=== PATIENT | male | born 1950 | race Caucasian/White ===

== ENCOUNTER 2016-11-25 11:58 | Inpatient (IN) | payer OTHER ==
--- NOTE | 2016-11-25 12:12 | CPEKG ---
Heart Rate: 73 RR Interval: 822 P-R Interval: 132 QRSD Interval: 82 QT Interval: 428 QTC Interval: 472 P Vanderbilt: -63 QRS Vanderbilt: 66 T Wave Vanderbilt: 16 EKG Severity - ABNORMAL ECG - EKG Impression: SINUS OR ECTOPIC ATRIAL RHYTHM EKG Impression: MULTIPLE ATRIAL PREMATURE COMPLEXES Electronically Signed By: Lupis Al 25-Nov-2016 15:07:18
[2016-11-25] MEDS ORDERED: NS 500 ML IV ONE (12:21)
[2016-11-25 12:22] LABS: % IMMATURE GRANULYOCYTES 0.7 % (0.0-1.1); ABSOLUTE IMMATURE GRANULOCYTES 0.07 10^3/uL (0.00-0.10); ADD DIFF? NO; ADD MORPH? YES; ADD SCAN? NO; ATYPICAL LYMPHOCYTE FLAG 10 (0-99); FRAGMENT RBC FLAG 0 (0-99); HEMATOCRIT 18.8 % (40.0-51.0); LEFT SHIFT FLG 10 (0-99); LIPEMIA HEMOLYSIS FLAG 80 (0-99); MEAN CELL HEMOGLOBIN 29.2 pg (27.9-34.1); MEAN CELL VOLUME 88.7 fL (81.5-99.8); PLATELET CLUMPS FLAG 0 (0-99); PLATELET COUNT 378 10^3/uL (150-400); RED BLOOD CELL COUNT 2.12 10^6/uL (4.40-6.38); RED CELL DISTRIBUTION WIDTH 14.1 % (11.5-15.2)
[2016-11-25 12:25] LABS: HEMOGLOBIN 6.2 g/dL (13.7-17.5)
[2016-11-25 12:35] LABS: ALANINE AMINOTRANSFERASE 25 IU/L (21-72); ALBUMIN 2.3 g/dL (3.5-5.0); ALKALINE PHOSPHATASE 60 IU/L (38-126); ANION GAP 10 mEq/L (8-16); ASPARTATE AMINOTRANSFERASE 22 IU/L (17-59); BILIRUBIN,TOTAL 0.6 mg/dL (0.1-1.4); CALCIUM 8.1 mg/dL (8.5-10.4); CARBON DIOXIDE 20 mEq/l (22-31); CHLORIDE 100 mEq/L (97-110); CREATININE 0.8 mg/dL (0.7-1.3); GLOMERULAR FILTRATION RATE > 60; GLUCOSE 197 mg/dL (70-100); POTASSIUM 4.1 mEq/L (3.5-5.2); SODIUM 130 mEq/L (134-144); TOTAL PROTEIN 4.8 g/dL (6.3-8.2)
[2016-11-25] MEDS ORDERED: LIDOCAINE 2% JELLY 20 ML (UROJECT) ONE (12:46)
--- NOTE | 2016-11-25 12:49 | EDPHY ---
H & P Time Seen by Provider: 11/25/16 12:09 HPI/ROS: CHIEF COMPLAINT: Vomiting blood, syncope HISTORY OF PRESENT ILLNESS: 66-year-old male with newly diagnosed pancreatic cancer presents with vomiting blood and syncope. Onset of hematemesis this morning, 1 episode. 3 episodes of bloody stools this morning as well. Associated with 2 episodes of syncope. Ongoing epigastric pain, radiating to his back, but no new abdominal pain today. He takes ibuprofen 400 mg twice daily for ongoing pain. No prior history of peptic ulcer disease. He was diagnosed with pancreatic cancer in October of this year. He apparently has a 4 cm pancreatic mass, without metastasis. He is being seen at [facility] for the malignancy. REVIEW OF SYSTEMS: Constitutional: No fever, no chills Eyes: No visual changes ENT: No sore throat Respiratory: No cough, no shortness of breath Cardiac: No chest pain Genitourinary: No hematuria, no dysuria Musculoskeletal: No leg pain or swelling Skin: No rash Neurological: No headache Psychiatric: No depression Past Medical/Surgical History: Pancreatic cancer Social History: PCP: Dr. Miller No recent alcohol Smoking Status: Never smoked Physical Exam: General Appearance: Alert, pleasant, pale Eyes: Pupils equal and round, conjunctival pallor ENT, Mouth: Mucous membranes moist Neck: Normal inspection Respiratory: Lungs are clear to auscultation Cardiovascular: Regular rate and rhythm Gastrointestinal: Abdomen is soft, mild epigastric tenderness Rectal: Dark red blood present Neurological: A&O, nonfocal exam Skin: Warm and dry, pale Extremities: 1+ pedal edema bilaterally Psychiatric: Mood and affect normal Constitutional: Initial Vital Signs Heart Rate 70 11/25/16 12:09 Respiratory Rate 16 11/25/16 12:09 Blood Pressure 92/48 L 11/25/16 12:09 O2 Delivery Mode Room Air Allergies/Adverse Reactions: No Known Allergies Allergy (Unverified 11/25/16 12:37) Home Medications: Medication Instructions Recorded Cholecalciferol Vit D3 [Vitamin D3 1,000 units PO DAILY 11/25/16 (*)] Dorzolamide 2% [Trusopt 2% (*)] 1 drop EACHEYE BID 11/25/16 Furosemide [Lasix] 40 mg PO BID 11/25/16 Ibuprofen [Motrin (*)] 200 mg PO DAILY PRN 07/03/17 Spironolactone [Aldactone 25 MG 25 mg PO DAILY 11/25/16 (*)] oxyCODONE/APAP 5/325 [Percocet 1 - 2 tab PO HS PRN 11/25/16 5/325 (*)] Medical Decision Making - Diagnostics EKG Interpretation: EKG interpreted by me reveals a narrow complex atrial rhythm, possibly ectopic in origin, rate, 73, no ST or T segment changes. ED Course/Re-evaluation: Clinical presentation consistent with serious upper GI bleed. Stat CBC reveals hematocrit 18. Packed red blood cells 2 units IV ordered. IV normal saline 500 mL was given. Blood pressure is 102/52 after IV fluids. Protonix 40 mg IV given. The hospitalist service was consulted for admission. Dr. Ady Esposito was consulted and will see the patient in the hospital. 13:[address] Ady Esposito. Patient will be started on Protonix drip. 1 unit packed red blood cells were given prior to the patient's transfer to the ICU. No further episodes of hematemesis or hematochezia. Differential Diagnosis: Differential diagnosis includes does not limited to hemorrhagic shock, esophageal varices, gastritis, peptic ulcer disease, coagulopathy. Critical Care Time: This patient utilized 35 minutes of critical care time by me exclusive of unbundled procedures. - Data Points Laboratory Results: Laboratory Results 11/25/16 12:09 11/25/16 12:09 11/25/16 11/25/16 11/25/16 12:25 12:14 12:09 WBC RBC Hgb POC Hgb 5.1 gm/dL L* gm/dL (13.7-17.5) Hct POC Hct 15 % L* % (40-51) MCV MCH MCHC RDW Plt Count MPV Neut % (Auto) Lymph % (Auto) Casey % (Auto) Eos % (Auto) Baso % (Auto) Nucleat RBC Rel Count Absolute Neuts (auto) Absolute Lymphs (auto) Absolute Monos (auto) Absolute Eos (auto) Absolute Basos (auto) Absolute Nucleated RBC Immature Gran % Immature Gran # Platelet Estimate Hypochromasia Oval Macrocytes Smear Review By PT 16.6 SEC H SEC (12.0-15.0) INR 1.34 H (0.83-1.16) APTT 37.1 SEC SEC (23.0-38.0) POC Sodium 138 mEq/L mEq/L (134-144) Sodium POC Potassium 3.2 mEq/L L mEq/L (3.3-5.0) Potassium POC Chloride 102 mEq/L mEq/L (97-110) Chloride Carbon Dioxide Anion Gap POC BUN 29 mg/dL H mg/dL (7-23) BUN Creatinine POC Creatinine 0.6 mg/dL L mg/dL (0.7-1.3) Estimated GFR Glucose POC Glucose 151 mg/dL H mg/dL (70-100) Calcium Total Bilirubin AST ALT Alkaline Phosphatase Total Protein Albumin Patient ABO/Rh O POSITIVE Antibody Screen NEGATIVE Crossmatch IS Only See Detail 11/25/16 11/25/16 12:09 12:09 WBC 10.39 10^3/uL H 10^3/uL (3.80-9.50) RBC 2.12 10^6/uL L 10^6/uL (4.40-6.38) Hgb 6.2 g/dL L g/dL (13.7-17.5) POC Hgb Hct 18.8 % L % (40.0-51.0) POC Hct MCV 88.7 fL fL (81.5-99.8) MCH 29.2 pg pg (27.9-34.1) MCHC 33.0 g/dL g/dL (32.4-36.7) RDW 14.1 % % (11.5-15.2) Plt Count 378 10^3/uL 10^3/uL (150-400) MPV 9.0 fL fL (8.7-11.7) Neut % (Auto) 90.4 % H % (39.3-74.2) Lymph % (Auto) 4.8 % L % (15.0-45.0) Casey % (Auto) 3.9 % L % (4.5-13.0) Eos % (Auto) 0.1 % L % (0.6-7.6) Baso % (Auto) 0.1 % L % (0.3-1.7) Nucleat RBC Rel Count 0.0 % % (0.0-0.2) Absolute Neuts (auto) 9.39 10^3/uL H 10^3/uL (1.70-6.50) Absolute Lymphs (auto) 0.50 10^3/uL L 10^3/uL (1.00-3.00) Absolute Monos (auto) 0.41 10^3/uL 10^3/uL (0.30-0.80) Absolute Eos (auto) 0.01 10^3/uL L 10^3/uL (0.03-0.40) Absolute Basos (auto) 0.01 10^3/uL L 10^3/uL (0.02-0.10) Absolute Nucleated RBC 0.00 10^3/uL 10^3/uL (0-0.01) Immature Gran % 0.7 % % (0.0-1.1) Immature Gran # 0.07 10^3/uL 10^3/uL (0.00-0.10) Platelet Estimate ADEQUATE (ADEQ) Hypochromasia 1+ H Oval Macrocytes 1+ H Smear Review By Melissa MONCADA MD PT INR APTT POC Sodium Sodium 130 mEq/L L mEq/L (134-144) POC Potassium Potassium 4.1 mEq/L mEq/L (3.5-5.2) POC Chloride Chloride 100 mEq/L mEq/L (97-110) Carbon Dioxide 20 mEq/l L mEq/l (22-31) Anion Gap 10 mEq/L mEq/L (8-16) POC BUN BUN 37 mg/dL H mg/dL (7-23) Creatinine 0.8 mg/dL mg/dL (0.7-1.3) POC Creatinine Estimated GFR > 60 Glucose 197 mg/dL H mg/dL (70-100) POC Glucose Calcium 8.1 mg/dL L mg/dL (8.5-10.4) Total Bilirubin 0.6 mg/dL mg/dL (0.1-1.4) AST 22 IU/L IU/L (17-59) ALT 25 IU/L IU/L (21-72) Alkaline Phosphatase 60 IU/L IU/L (38-126) Total Protein 4.8 g/dL L g/dL (6.3-8.2) Albumin 2.3 g/dL L g/dL (3.5-5.0) Patient ABO/Rh Antibody Screen Crossmatch IS Only Medications Given: Discontinued Medications Sodium Chloride (Ns) 500 mls @ 1,000 mls/hr IV ONCE ONE PRN Reason: Protocol Stop: 11/25/16 12:50 Last Admin: 11/25/16 12:30 Dose: 500 mls Pantoprazole Sodium 40 mg/ (Sodium Chloride) 100 mls @ 200 mls/hr IV EDNOW ONE Stop: 11/25/16 13:21 Last Admin: 11/25/16 13:56 Dose: 100 mls Sodium Chloride (Ns) 1,000 mls @ 150 mls/hr IV CONT JOO Stop: 05/24/17 14:44 Last Admin: 11/25/16 16:12 Dose: 1,000 mls Octreotide Acetate 500 mcg/ (Dextrose) 51 mls @ 5 mls/hr IV CONT JOO Stop: 05/24/17 15:29 Last Admin: 11/25/16 16:09 Dose: 51 mls Phytonadione 10 mg/ Sodium (Chloride) 51 mls @ 102 mls/hr IV ONCE ONE Stop: 11/25/16 16:44 Last Admin: 11/25/16 16:40 Dose: 51 mls Point of Care Test Results: 11/25/16 12:25 POC Sodium 138 POC Potassium 3.2 L POC Chloride 102 POC BUN 29 H POC Creatinine 0.6 L POC Glucose 151 H Departure - Departure Disposition: [facility] Inpatient Acute Clinical Impression: Upper GI bleed Condition: Serious Report Scribed for: Lupis Al Report Scribed by: Renetta Martínez Date of Report: 11/25/16 Time of Report: 13:06 Physician Review and Approval Statement: 11/25/16 13:06 Portions of this note were transcribed by a biomedical engineering supervisor. I personally performed a history, physical exam, medical decision making, and confirmed accuracy of information the transcribed note.
[2016-11-25] MEDS ORDERED: PANTOPRAZOLE SODIUM 40 MG in NS 100 ML IV ONE (12:52)
[2016-11-25 12:57] LABS: HYPOCHROMIA 1+; MACROCYTES 1+; PLATELET ESTIMATE ADEQUATE (ADEQ)
[2016-11-25] MEDS ORDERED: PANTOPRAZOLE SODIUM 80 MG in NS 100 ML IV ONE (13:03)
[2016-11-25 13:11] LABS: INR 1.34 (0.83-1.16); PROTIME(PATIENT) 16.6 SEC (12.0-15.0)
[2016-11-25 13:12] LABS: APTT 37.1 SEC (23.0-38.0)
[2016-11-25] MEDS ORDERED: LORazepam 2 MG/ML INJ IVP PRN (14:42)
[2016-11-25] MEDS ORDERED: NS 1,000 ML IV SCH (14:45)
[2016-11-25] MEDS ORDERED: PROTOCOL K PHOSPHATE 1 DOSE IV PRN (14:47)
[2016-11-25] MEDS ORDERED: PROTOCOL POTASSIUM 1 DOSE MISC PRN ×2 (14:47)
[2016-11-25] MEDS ORDERED: PROTOCOL CALCIUM 1 DOSE IV PRN (14:47)
[2016-11-25] MEDS ORDERED: PROTOCOL MAGNESIUM 1 DOSE IV PRN (14:47)
[2016-11-25] MEDS ORDERED: MIDAZOLAM 2 MG/2 ML VIAL ONE (14:53)
[2016-11-25] MEDS ORDERED: EPINEPHrine 1 MG/10 ML SYR IVP ONE (14:53)
[2016-11-25] MEDS ORDERED: fentaNYL 100 MCG/2 ML INJ ONE (14:53)
--- NOTE | 2016-11-25 14:57 | PDGENHP ---
History and Physical - Chief Complaint syncope/vomiting blood - History of Present Illness 66 yo M with newly diagnosed pancreatic cancer presenting with hematemesis, BRBPR and melena starting this morning. He notes that yesterday he felt well but this morning he vomited blood and then fainted. He proceeded to have several bowel movements which were both dark and bloody and had a second syncopal event. He notes that he has been dealing with midepigastric and back pain for a while due to his pancreatic cancer which was diagnosed in October. He takes percocet and about 4 advil per day to deal with his pain. The pain was not worse than usual recently. He currently feels well after receiving a unit of blood. Never had similar issues in the past. History Information - Allergies/Home Medication List Allergies/Adverse Reactions: No Known Allergies Allergy (Unverified 11/25/16 12:37) Home Medications: Cholecalciferol Vit D3 [Vitamin D3 (*)] 1,000 units PO DAILY 11/25/16 [Last Taken Unknown] Dorzolamide 2% [Trusopt 2% (*)] 1 drop EACHEYE BID 11/25/16 [Last Taken 21:00] Furosemide [Lasix] 40 mg PO BID 11/25/16 [Last Taken 11/24/16 21:00] Ibuprofen [Motrin (*)] 200 mg PO DAILY PRN 11/25/16 [Last Taken Unknown] Spironolactone [Aldactone 25 MG (*)] 25 mg PO DAILY 11/25/16 [Last Taken ] oxyCODONE/APAP 5/325 [Percocet 5/325 (*)] 1 - 2 tab PO HS PRN 11/25/16 [Last Taken 11/24/16] I have personally reviewed and updated: family history, medical history, social history, surgical history - Past Medical History cancer (pancreatic cancer dx in October--unresectable, large pancreatic head mass. Has not started chemo) - Surgical History Reports: no pertinent surgical hx - Family History Positive for: non-pertinent - Social History Smoking Status: Never smoked Alcohol Use: None Drug Use: None Additional social history: lives alone, still working Review of Systems ROS: 10pt was reviewed & negative except for what was stated in HPI & below Physical Exam Temp Pulse Resp BP Pulse Ox 36.4 C 66 18 104/63 100 07/03/17 14:15 11/25/16 14:15 11/25/16 14:15 11/25/16 14:15 11/25/16 14:15 Constitutional: appears nourished, not in pain, chronically ill appearing Eyes: PERRL, scleral injection Ears, Nose, Mouth, Throat: moist mucous membranes, hearing normal Cardiovascular: regular rate and rhythym, no murmur, rub, or gallop, No edema Respiratory: no respiratory distress, no rales or rhonchi Gastrointestinal: soft, non-tender abdomen, no palpable masses, No normoactive bowel sounds, No guarding, No rebound, No distension Genitourinary: no bladder tenderness Skin: warm, No normal color (pale) Musculoskeletal: No asymmetric calves Neurologic: AAOx3 Psychiatric: interacting appropriately, not anxious, not encephalopathic Lab Data & Imaging Review 11/25/16 12:09 11/25/16 12:09 WBC 10.39 10^3/uL (3.80-9.50) H 11/25/16 12:09 RBC 2.12 10^6/uL (4.40-6.38) L 11/25/16 12:09 Hgb 6.2 g/dL (13.7-17.5) L 11/25/16 12:09 POC Hgb 5.1 gm/dL (13.7-17.5) L* 11/25/16 12:25 Hct 18.8 % (40.0-51.0) L 11/25/16 12:09 POC Hct 15 % (40-51) L* 11/25/16 12:25 MCV 88.7 fL (81.5-99.8) 11/25/16 12:09 MCH 29.2 pg (27.9-34.1) 11/25/16 12:09 MCHC 33.0 g/dL (32.4-36.7) 11/25/16 12:09 RDW 14.1 % (11.5-15.2) 11/25/16 12:09 Plt Count 378 10^3/uL (150-400) 11/25/16 12:09 MPV 9.0 fL (8.7-11.7) 11/25/16 12:09 Neut % (Auto) 90.4 % (39.3-74.2) H 11/25/16 12:09 Lymph % (Auto) 4.8 % (15.0-45.0) L 11/25/16 12:09 Haywood % (Auto) 3.9 % (4.5-13.0) L 11/25/16 12:09 Eos % (Auto) 0.1 % (0.6-7.6) L 11/25/16 12:09 Baso % (Auto) 0.1 % (0.3-1.7) L 11/25/16 12:09 Nucleat RBC Rel Count 0.0 % (0.0-0.2) 11/25/16 12:09 Absolute Neuts (auto) 9.39 10^3/uL (1.70-6.50) H 11/25/16 12:09 Absolute Lymphs (auto) 0.50 10^3/uL (1.00-3.00) L 11/25/16 12:09 Absolute Monos (auto) 0.41 10^3/uL (0.30-0.80) 11/25/16 12:09 Absolute Eos (auto) 0.01 10^3/uL (0.03-0.40) L 11/25/16 12:09 Absolute Basos (auto) 0.01 10^3/uL (0.02-0.10) L 11/25/16 12:09 Absolute Nucleated RBC 0.00 10^3/uL (0-0.01) 11/25/16 12:09 Immature Gran % 0.7 % (0.0-1.1) 11/25/16 12:09 Immature Gran # 0.07 10^3/uL (0.00-0.10) 11/25/16 12:09 Platelet Estimate ADEQUATE (ADEQ) 11/25/16 12:09 Hypochromasia 1+ H 11/25/16 12:09 Oval Macrocytes 1+ H 11/25/16 12:09 PT 16.6 SEC (12.0-15.0) H 11/25/16 12:14 INR 1.34 (0.83-1.16) H 11/25/16 12:14 APTT 37.1 SEC (23.0-38.0) 11/25/16 12:14 POC Sodium 138 mEq/L (134-144) 11/25/16 12:25 Sodium 130 mEq/L (134-144) L 11/25/16 12:09 POC Potassium 3.2 mEq/L (3.3-5.0) L 11/25/16 12:25 Potassium 4.1 mEq/L (3.5-5.2) 11/25/16 12:09 POC Chloride 102 mEq/L (97-110) 11/25/16 12:25 Chloride 100 mEq/L (97-110) 11/25/16 12:09 Carbon Dioxide 20 mEq/l (22-31) L 11/25/16 12:09 Anion Gap 10 mEq/L (8-16) 11/25/16 12:09 POC BUN 29 mg/dL (7-23) H 11/25/16 12:25 BUN 37 mg/dL (7-23) H 11/25/16 12:09 Creatinine 0.8 mg/dL (0.7-1.3) 11/25/16 12:09 POC Creatinine 0.6 mg/dL (0.7-1.3) L 11/25/16 12:25 Estimated GFR > 60 11/25/16 12:09 Glucose 197 mg/dL (70-100) H 11/25/16 12:09 POC Glucose 151 mg/dL (70-100) H 11/25/16 12:25 Calcium 8.1 mg/dL (8.5-10.4) L 11/25/16 12:09 Total Bilirubin 0.6 mg/dL (0.1-1.4) 11/25/16 12:09 AST 22 IU/L (17-59) 11/25/16 12:09 ALT 25 IU/L (21-72) 11/25/16 12:09 Alkaline Phosphatase 60 IU/L (38-126) 11/25/16 12:09 Total Protein 4.8 g/dL (6.3-8.2) L 11/25/16 12:09 Albumin 2.3 g/dL (3.5-5.0) L 11/25/16 12:09 Patient ABO/Rh O POSITIVE 11/25/16 12:09 Antibody Screen NEGATIVE 11/25/16 12:09 Crossmatch IS Only See Detail 11/25/16 12:09 Visualized and Interpreted imaging results: Yes Interpretation: NG in stomach Assessment & Plan Assessment: Upper GI bleed (Acute) 66 yo M with recently diagnosed unresectable pancreatic cancer presenting with GI bleed, syncope and acute blood loss anemia # GI bleed: sounds like a brisk upper GI bleed with both hematemesis and both BRBPR and melena. Currently HD stable, will transfuse 2 units prbcs and trend h/ h. GI has been consulted and likely will proceed with EGD today. Continue protonix gtt. Is chronically on NSAIDS though no prior hx of PUD or GERD. 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 # acute blood loss anemia: in the setting of above, last CBC from [facility] on 11/14 was 38.6. Transfusion and serial h/h as above. # pancreatic cancer: he is followed at [facility] for this, diagnosed in October after several months of sxs that were initially attributed to possible CHF and w/u including r/l heart cath as well as myocardial bx. He is not a surgical candidate and has decided to wait on initiating chemotherapy. This was a locally advanced cancer, [id number]. # edema/ascites: currently appears euvolemic, due to underlying portal htn, holding diuretics for now given acute bleed # IP status, high risk requiring ICU level care Patient is new to my care. Old records reviewed including records from [facility] available in [place]. Care plan reviewed with ER doctor. > 60 minutes in critical care time spent reviewing labs and imaging and coordinating care.
[2016-11-25] MEDS ORDERED: PANTOPRAZOLE SODIUM 80 MG in NS 100 ML IV SCH (15:00)
[2016-11-25] MEDS ORDERED: OCTREOTIDE ACETATE 500 MCG in D5W 50 ML IV SCH (15:30)
[2016-11-25] MEDS ORDERED: NS 500 ML IV PRN (16:12)
[2016-11-25] MEDS ORDERED: PHYTONADIONE 10 MG in NS 50 ML IV ONE (16:15)
[2016-11-25] MEDS ORDERED: D5W 1/2 NS W/ 20 KCl/L 1,000 ML IV SCH (16:15)
--- NOTE | 2016-11-25 16:35 | GCON ---
[f rep st] CONSULTATION GASTROINTESTINAL INPATIENT CONSULTATION DATE OF CONSULTATION: 11/25/2016 I was kindly requested to see the patient by Dr. Belinda Mcnamara in consultation for a chief complaint of gastrointestinal bleeding. He is a 66- year-old, who presented to the hospital today with hematemesis, and passing black stool with some maroon element as well. He had syncope with the above. He has been having mid epigastric and back pain due to his pancreatic cancer, and has been using multiple Aleve tablets daily. He is cared for at the [facility] for his pancreatic cancer. According to his history and physical, he has had outside imaging that shows that it is encasing the portal vein. He has also had complications such as ascites and edema, and there is mention of portal hypertension on his imaging. PAST MEDICAL HISTORY: 1. As above. 2. Pancreatic cancer, involving the head. Large, and apparently unresectable. Diagnosed in October. He has not started chemotherapy. 3. Otherwise, noncontributory. ALLERGIES: No known drug allergies. MEDICATIONS: Outpatient medications include the above. Inpatient medications include octreotide drip, pantoprazole drip, potassium protocol and normal saline at 150 mL an hour, SOCIAL HISTORY: He lives alone here in [place]. He has a brother that he is close to in [place]. FAMILY HISTORY: Negative for similar bleeding. REVIEW OF SYSTEMS: Positive pertinent review of systems as per my HPI. Otherwise, a complete review of systems is negative. PHYSICAL EXAM: CONSTITUTIONAL: A pale appearing, pleasant gentleman. SKIN: Warm, pale. EYES: Pupils equal, round, reactive to light and accommodation. EARS, NOSE, MOUTH, AND THROAT: Oropharynx without masses, moist mucosa. CARDIOVASCULAR: Normal S2, normal PMI. RESPIRATORY: Lungs clear to auscultation and percussion anteriorly. GASTROINTESTINAL: Soft, nontender. NEUROLOGIC: Grossly nonfocal, cranial nerves grossly intact. PSYCHIATRIC: Orientation, insight appropriate. MUSCULOSKELETAL: Strength grossly normal throughout, with normal station. LABORATORIES: Include a hematocrit of 18.8%. Platelet count normal. Prothrombin time 16.6. INR 1.34. Potassium 3.2. Normal liver function tests. ASSESSMENT: Upper gastrointestinal bleed. Could be due to peptic ulcer from his nonsteroidal use. However, with the report of his portal vein being encased by pancreatic cancer, certainly he may have developed portal vein thrombosis and esophageal varices. There was also some mention in his chart of "portal hypertension", which could lead to varices as well. PLAN: 1. Urgent upper endoscopy. Certainly, with his very significant anemia, acute bleeding, recently diagnosed pancreatic cancer, etcetera, he is at increased risk for this procedure. However, suspected benefits outweigh the risks, and suspect he will do well. 2. Further management depending on the above. Thank you for allowing me to help in the management of this patient. Copy requested to: Reji Medina MD [facility] [place] /[id number]/MODL MTDD
--- NOTE | 2016-11-25 16:55 | GPN ---
[f rep st] PROCEDURE NOTE DATE OF PROCEDURE: 11/25/2016 PROCEDURE: Upper endoscopy with biopsy. PREPROCEDURE DIAGNOSIS: Hematemesis. POSTPROCEDURE DIAGNOSIS: Large mass in the duodenum (see below). PREMEDICATION: Fentanyl 150 mcg IV, Versed 6 mg IV. COMPLICATIONS: None. TOTAL TIME OF PROCEDURE: From beginning of sedation to procedures' end was 23 minutes. FINDINGS: After informed consent was obtained, the patient was placed in left lateral decubitus position. Video upper endoscope was placed under direct visualization and advanced. Esophagus was normal, without varices. The stomach had a large amount of clotted blood in the dependent portion making visualization of this area difficult. The cardia had no gastric varices. The visualized stomach was normal. Immediately as we entered the duodenal bulb, it was almost completely occupied by a very large circumferential mass. The distal part of the duodenal bulb had a very tight lumen from constriction from this circumferential mass. Unable to get the upper endoscope through (did not overly try, as did not want to disturb any clot, in terms of reactivating bleeding). Associated with this large mass and duodenal bulb was a large adherent clot. No obvious active bleeding could be seen presently. Biopsies were done of the mass. IMPRESSION: Very large mass occupying the duodenal bulb, circumferential, with recent bleeding and an adherent clot, as well as very narrowed lumen. Overall, I suspect this is his known pancreatic cancer infiltrating his duodenal bulb. I suspect the bleeding was arterial from this cancer. Presently, not bleeding. However, this mass will certainly rebleed at some point, quite briskly. PLAN: 1. Will continue n.p.o. except medications, sips of water. 2. Will stop his normal saline at 150 mL/hour with his history of ascites and edema. Rather, will do D5 1/2 NS with 20 mEq of KCl per liter bag at 40 mL/hour , with a normal saline 500 cc bolus IV p.r.n. for systolic blood pressure less than 90. 3. Vitamin K IV x1. 4. Serial hematocrits with transfusion of blood as needed. 5. Continue Protonix drip. 6. Discontinue octreotide drip. This is not related to portal hypertension. 7. Further management of this infiltrating cancer is very difficult. It has a very high risk that it will rebleed at some point soon, and will be a very brisk arterial bleed that could be life-threatening. At this point, considering his tumor burden, the best option might be hospice and comfort care. I do not think a modified Whipple to remove the duodenal bulb and this bleeding cancer would be possible, with his unresectability with his pancreatic cancer reportedly wrapping around his portal vein. If he were to rebleed, interventional radiology and embolization might be possible, but often these arterial cancer bleeds can be multifocal. I will discuss options, including hospice, with the patient when he is awake and coherent from his procedure. Further management depending on this conversation. Thank you for allowing me to help in the management of this patient. Copy requested to: Reddy Bonilla MD /[id number]/MODL MTDD
[2016-11-25 17:16] LABS: HEMATOCRIT 20.4 % (40.0-51.0)
[2016-11-25 17:19] LABS: HEMOGLOBIN 6.9 g/dL (13.7-17.5)
[2016-11-25 18:13] LABS: POTASSIUM 3.8 mEq/L (3.5-5.2)
[2016-11-25] MEDS: POTASSIUM Cl (KCl) 100 ML IV SCH ×2 (21:07→22:42)
[2016-11-25] MEDS: DORZOLAMIDE 2% OPTH DROPS EACHEYE SCH (21:48)
[2016-11-26] MEDS: PANTOPRAZOLE SODIUM 80 MG in NS 100 ML IV SCH ×2 (00:35→11:31)
[2016-11-26 01:13] LABS: HEMATOCRIT 29.1 % (40.0-51.0); HEMOGLOBIN 9.8 g/dL (13.7-17.5)
[2016-11-26 01:25] LABS: POTASSIUM 4.7 mEq/L (3.5-5.2)
[2016-11-26 05:55] LABS: IONIZED CALCIUM 0.91 MMOL/L (1.12-1.30)
[2016-11-26 05:59] LABS: % IMMATURE GRANULYOCYTES 0.7 % (0.0-1.1); ABSOLUTE IMMATURE GRANULOCYTES 0.06 10^3/uL (0.00-0.10); ADD DIFF? NO; ADD MORPH? NO; ADD SCAN? NO; ATYPICAL LYMPHOCYTE FLAG 20 (0-99); FRAGMENT RBC FLAG 0 (0-99); HEMATOCRIT 28.2 % (40.0-51.0); HEMOGLOBIN 9.4 g/dL (13.7-17.5); LEFT SHIFT FLG 0 (0-99); LIPEMIA HEMOLYSIS FLAG 80 (0-99); MEAN CELL HEMOGLOBIN 27.8 pg (27.9-34.1); MEAN CELL HEMOGLOBIN CONCENTR. 33.3 g/dL (32.4-36.7); MEAN CELL VOLUME 83.4 fL (81.5-99.8); MEAN PLATELET VOLUME 9.1 fL (8.7-11.7); PLATELET CLUMPS FLAG 10 (0-99); PLATELET COUNT 211 10^3/uL (150-400); RED BLOOD CELL COUNT 3.38 10^6/uL (4.40-6.38)
[2016-11-26 06:10] LABS: ANION GAP 5 mEq/L (8-16); CALCIUM 7.9 mg/dL (8.5-10.4); CARBON DIOXIDE 21 mEq/l (22-31); CHLORIDE 108 mEq/L (97-110); CREATININE 0.6 mg/dL (0.7-1.3); GLOMERULAR FILTRATION RATE > 60; GLUCOSE 93 mg/dL (70-100); MAGNESIUM 1.8 mg/dL (1.6-2.3); POTASSIUM 4.6 mEq/L (3.5-5.2); SODIUM 134 mEq/L (134-144)
[2016-11-26] MEDS ORDERED: CALCIUM GLUCONATE 50 ML IV ONE (08:40)
[2016-11-26] MEDS ORDERED: MAGNESIUM SULF 1 GM/DEXTROSE 100 ML IV ONE (08:40)
[2016-11-26] MEDS: DORZOLAMIDE 2% OPTH DROPS EACHEYE SCH ×2 (09:43→21:01)
[2016-11-26 12:02] LABS: HEMATOCRIT 28.9 % (40.0-51.0); HEMOGLOBIN 9.7 g/dL (13.7-17.5)
[2016-11-26 12:24] LABS: POTASSIUM 4.9 mEq/L (3.5-5.2)
--- NOTE | 2016-11-26 13:45 | SOAPPROG ---
SOAP Progress Note Assessment/Plan: Assessment/Plan: Pancreatic cancer, now infiltrating the duodenal bulb almost completely, with recent active bleed. Now, appears stopped, for the time being. I had a long discussion with Ryan about the above, along with two of his very close friends. If he was to rebleed, he knows the options are Whipple, I.R. attempt at embolization, or do nothing. He would prefer to do nothing. In addition: - he is not sure whether he would want blood transfusions or not if he was to rebleed - he will meet with Dr. Bonilla Friday, but is leaning towards no chemo - he is interested in hospice - From a G.I. standpoint, with his above comfort wishes, he can go home, whenever he feels safe. - feed, liberalize care I will sign off. I will f/u on biopsies, but suspect will just show the above. Else, please call if we can be of further help [phone] Thanks! Of note, 42 minutes of direct [id number] pt. counseling was spent. 11/26/16 13:36 Subjective: cc: UGI bleed Feels weak. Abdominal/back pain about the same. Else, denies rigors, chills. Objective: Vital Signs Temp Pulse Resp BP Pulse Ox 37.2 C 59 L 24 H 94/48 L 98 11/26/16 12:00 11/26/16 12:00 11/26/16 12:00 11/26/16 12:00 11/26/16 10:00 Laboratory Results 11/26/16 11:30 11/26/16 11:30 11/25/16 11/26/16 11/27/16 05:59 05:59 05:59 Intake Total 2458 Output Total 950 Balance 1508 PT 16.6 SEC (12.0-15.0) H 11/25/16 12:14 INR 1.34 (0.83-1.16) H 11/25/16 12:14 Bx pending. Physical Exam - Physical Exam General Appearance: WD/WN, alert, no apparent distress EENT: PERRL/EOMI, normal ENT inspection, pharynx normal, TMs normal Neck: non-tender, full range of motion, supple, normal inspection Respiratory: chest non-tender, lungs clear, normal breath sounds Cardiac/Chest: normal peripheral pulses, regular rate, rhythm Peripheral Pulses: 2+: carotid (R), carotid (L), femoral (R), femoral (L), dorsalis-pedis (R), dorsalis-pedis (L) Abdomen: normal bowel sounds, non-tender, soft Male Genitalia: deferred Rectal: deferred Back: Normal inspection Skin: normal color, warm/dry Lymphatic: no adenopathy Extremities: normal range of motion, non-tender, normal inspection, normal capillary refill Neuro/Psych: no motor/sensory deficits, alert, normal mood/affect, oriented x 3 ICD10 Worksheet Patient Problems: Problems Problem Status Onset Upper GI bleed Acute
--- NOTE | 2016-11-26 14:07 | GCON ---
[f rep st] CONSULTATION CRITICAL CARE CONSULT DATE OF CONSULTATION: 11/26/2016 HISTORY OF PRESENT ILLNESS: The patient is a 66-year-old male with newly diagnosed pancreatic cance r, who was admitted last evening with hematemesis and melena starting shortly before admission. He did have a hematemesis yesterday and had a syncopal episode followed by melanotic bowel movements. He was having mid epigastric and back pain and was taking Percocet and Advil prior to this event. I n the emergency department he was found to be severely anemic and received blood transfusions, and w as subsequently seen by GI, who performed an EGD revealing a large mass obstructing the duodenal bul b which was the likely source of bleeding, and no direct intervention was performed at that time but there was no active bleeding at the time of the scope. There were portions of the stomach that wer e covered with blood and visualization was suboptimal, but this did not appear to be the source of b leeding. REVIEW OF SYSTEMS: Otherwise negative PAST MEDICAL HISTORY: Includes the pancreatic cancer, portal hypertension as a result of his pancre atic mass, chronic pain, and glaucoma. SOCIAL HISTORY: He is a nonsmoker. No alcohol or IV drug use. FAMILY HISTORY: Noncontributory at this time. PAST SURGICAL HISTORY: None. MEDICATIONS: Include Trusopt, Ativan, morphine, Protonix, normal saline, octreotide, vitamin K was given once. PHYSICAL EXAMINATION: VITAL SIGNS: He was afebrile. His blood pressure was 94/48, heart rate of a bout 60, respirations 24, oxygen saturation 98% on room air. He is very pleasant man in no apparent distress and able to speak in full sentences without using accessory muscles for breathing. HEENT: Pupils were equally round and reactive to light and nonicteric and noninjected. Mucous membranes are moist without erythema or exudate. NECK: Supple without adenopathy or jugular vein distention. Breath sounds were clear to auscultation bilaterally without wheezes, rubs or rales. HEART: Regu lar rate and rhythm without murmurs, rubs, or gallops. ABDOMEN: Soft, nontender, nondistended with hypoactive bowel tones but no palpable pulsations. There is no costovertebral angle tenderness. E XTREMITIES: Showed no clubbing, cyanosis, or edema. NEUROLOGIC: Nonfocal, including cranial nerve s and deep tendon reflexes. OBJECTIVE DATA: Includes his hemoglobin and hematocrit on admission were 5.1 and 15, most recent we re 9.7 and 28.9, platelets were normal at 211. Basic metabolic panel was unremarkable. Electrolyte s have been replaced. ASSESSMENT AND PLAN: 1. Upper gastrointestinal bleed. This is likely due to his underlying mass that has eroded into hi s duodenal bulb with near circumferential obstruction. This is likely to be difficult to deal with, and at this point we are exploring what his options might include which would be a debulking proced ure to eliminate further bleeding and not for cure. Embolization is a possibility as well, and a ca ll to Interventional Radiology is pending at this time. Hospice is another option that we could con dredge hand, as this is very likely to rebleed. GI has been consulted already on this case, and feels tr t octreotide is not likely to be useful which is certainly understandable, and he will continue with a proton pump inhibitor. 2. Lower extremity edema. Presumably related to portal hypertension. I would certainly hold his d iuretics for now given his borderline blood pressure at the moment, and we may resume that at a late r date. /[id number]/MODL
[2016-11-26] MEDS: PANTOPRAZOLE SODIUM 40 MG TAB PO SCH (14:45)
--- NOTE | 2016-11-26 14:46 | HOSPPROG ---
Hospitalist Progress Note Assessment/Plan: 66 yo M newly diagnosed pancreatic cancer pw GI bleed 2/2 newly dx duodenal ulcer # acute gi bleed: found to be due to arterial bleed associated with large duodenal mass, likely pancreatic mass invading duodenal bulb. Was not actively bleeding at time of EGD evaluation. Patient has had options discussed with him including consideration for palliative resection to hopefully avoid further bleeding incident. Other consideration would be for IR embolization, but this would likely only be successful if actively bleeding. Monitoring overnight, no s /s of current bleeding # acute blood loss anemia: in the setting of above with rapid blood loss from GI bleed as detailed. s/p tx 4 units. Stable thus far, monitoring # locally invasive pancreatic cancer: with e/o fungating duodenal mass as above , px poor, initial tumor felt to be unresectable, now with invasion to duodenum with high risk for recurrent bleeding. Patient interested in likely only comfort care, but given new dx wants to have some more information--will ask palliative to get involved and help patient with decision making, cor status, possible home hospice. # dispo: IP status, remains high risk Reviewed care plan with Dr. Meza and Dr. Esposito Subjective: no significant overnight events, feeling fatigued this am but no other acute complaints Objective: Vital Signs Temp Pulse Resp BP Pulse Ox 37.2 C 59 L 24 H 94/48 L 98 11/26/16 12:00 11/26/16 12:00 11/26/16 12:00 11/26/16 12:00 11/26/16 10:00 Laboratory Results 11/26/16 11:30 11/26/16 11:30 11/25/16 11/26/16 11/27/16 05:59 05:59 05:59 Intake Total 2458 Output Total 950 Balance 1508 PT 16.6 SEC (12.0-15.0) H 11/25/16 12:14 INR 1.34 (0.83-1.16) H 11/25/16 12:14 awake alert nad anicteric op clear rrr no mrg cta b soft ttp midepigastrium trace ble edema pale warm dry oriented appropraite - Time Spent With Patient Time Spent with Patient: greater than 35 minutes Time Spent with Patient: Greater than 35 minutes spent on this patients care, greater than 50% of time spent counseling, educating, and coordinating care regarding the above mentioned plan. ICD10 Worksheet Patient Problems: Problems Problem Status Onset Upper GI bleed Acute
[2016-11-26 15:14] LABS: % IMMATURE GRANULYOCYTES 0.7 % (0.0-1.1); ABSOLUTE IMMATURE GRANULOCYTES 0.08 10^3/uL (0.00-0.10); ADD DIFF? NO; ADD MORPH? NO; ADD SCAN? NO; ATYPICAL LYMPHOCYTE FLAG 0 (0-99); FRAGMENT RBC FLAG 0 (0-99); HEMATOCRIT 21.9 % (40.0-51.0); HEMOGLOBIN 7.2 g/dL (13.7-17.5); LEFT SHIFT FLG 0 (0-99); LIPEMIA HEMOLYSIS FLAG 80 (0-99); MEAN CELL HEMOGLOBIN 28.6 pg (27.9-34.1); MEAN CELL HEMOGLOBIN CONCENTR. 32.9 g/dL (32.4-36.7); MEAN CELL VOLUME 86.9 fL (81.5-99.8); MEAN PLATELET VOLUME 9.1 fL (8.7-11.7); PLATELET CLUMPS FLAG 0 (0-99); PLATELET COUNT 213 10^3/uL (150-400); RED BLOOD CELL COUNT 2.52 10^6/uL (4.40-6.38); RED CELL DISTRIBUTION WIDTH 17.9 % (11.5-15.2)
[2016-11-26] MEDS ORDERED: NS 1,000 ML IV ONE (15:15)
[2016-11-26 15:25] LABS: INR 1.37 (0.83-1.16); PROTIME(PATIENT) 16.9 SEC (12.0-15.0)
[2016-11-26 15:26] LABS: APTT 29.2 SEC (23.0-38.0)
--- NOTE | 2016-11-26 15:34 | PDINTPN ---
City Planning Engineer Progress Note Assessment/Plan: Assessment/plan: 66 M with recently diagnosed pancreatic cancer yet to be treated admitted with UGIB. EGD revealed large duodenal mass just inside pylorus with minimal luminal opening. No specific therapy was indicated and he had stopped bleeding at that point. Patient given options of IR-embolization, transfer to where his cancer care is centered, or surgical consult for palliative debulking. He was considering these options when he rebled with simultaneous hematemesis and melena around 1530. No aspiration was observed and his VS were stable, but his Hct dropped to 21. * UGIB 2/2 kde-ej-hx-treated pancreatic cancer with extension into duodenum. IR will attempt embolization of GDA in an attempt to stop bleeding. * Hypotension- 2/2 GIB- FFP, RBCs pending. NS bolus given. * Pancreatic cancer- awaiting discussion with heme/onc friday Objective: Vital Signs Temp Pulse Resp BP Pulse Ox 37.2 C 66 20 96/63 L 98 11/26/16 12:00 11/26/16 14:00 11/26/16 14:00 11/26/16 14:00 11/26/16 14:00 Laboratory Results 11/26/16 15:05 11/25/16 11/26/16 11/27/16 05:59 05:59 05:59 Intake Total 2458 Output Total 950 Balance 1508 PT 16.9 SEC (12.0-15.0) H 11/26/16 15:10 INR 1.37 (0.83-1.16) H 11/26/16 15:10 Physical Exam - Physical Exam General Appearance: alert, moderate distress EENT: PERRL/EOMI Neck: supple Respiratory: lungs clear, normal breath sounds, No respiratory distress Cardiac/Chest: regular rate, rhythm, No edema Abdomen: soft, No distended Lymphatic: no adenopathy Extremities: No pedal edema Neuro/Psych: alert, normal mood/affect, oriented x 3 ICD10 Worksheet Patient Problems: Problems Problem Status Onset Upper GI bleed Acute
[2016-11-26 15:37] LABS: ANION GAP 5 mEq/L (8-16); CALCIUM 7.7 mg/dL (8.5-10.4); CARBON DIOXIDE 19 mEq/l (22-31); CHLORIDE 109 mEq/L (97-110); CREATININE 0.7 mg/dL (0.7-1.3); GLOMERULAR FILTRATION RATE > 60; GLUCOSE 129 mg/dL (70-100); POTASSIUM 4.5 mEq/L (3.5-5.2); SODIUM 133 mEq/L (134-144)
[2016-11-26] MEDS ORDERED: MIDAZOLAM 2 MG/2 ML VIAL ONE (15:56)
[2016-11-26] MEDS ORDERED: fentaNYL 100 MCG/2 ML INJ ONE (15:56)
--- NOTE | 2016-11-26 17:16 | POSTOPPROG ---
Post Op Note Date of Operation: 11/26/16 Surgeon: Karley Barr Anesthesia: IV Sedation (no sedation given), Local (Specify) (xylocaine) Pre-op Diagnosis: UGIB, pancreatic CA Post-op Diagnosis: same Indication: active bleeding Procedure: angiogram; GDA embolization Findings: No extrav seen. Main GDA completely within CA; embolized Inf/Abcess present in the surg proc area at time of surgery?: No Depth: Superfical (Skin SQ) EBL: Minimal Complications: none
[2016-11-26] MEDS ORDERED: IOPAMIDOL (ISOVUE-300) 100 ML BTL ONE (17:36)
[2016-11-26 18:34] LABS: HEMATOCRIT 21.4 % (40.0-51.0); HEMOGLOBIN 7.2 g/dL (13.7-17.5)
[2016-11-26 18:57] LABS: POTASSIUM 4.3 mEq/L (3.5-5.2)
[2016-11-26] MEDS ORDERED: NS 500 ML IV ONE (20:00)
[2016-11-26 23:14] LABS: HEMATOCRIT 21.1 % (40.0-51.0); HEMOGLOBIN 7.3 g/dL (13.7-17.5)
[2016-11-27 05:11] LABS: % IMMATURE GRANULYOCYTES 0.4 % (0.0-1.1); ABSOLUTE IMMATURE GRANULOCYTES 0.04 10^3/uL (0.00-0.10); ADD DIFF? NO; ADD MORPH? YES; ADD SCAN? NO; ATYPICAL LYMPHOCYTE FLAG 0 (0-99); FRAGMENT RBC FLAG 0 (0-99); HEMATOCRIT 19.6 % (40.0-51.0); IONIZED CALCIUM 1.09 MMOL/L (1.12-1.30); LEFT SHIFT FLG 0 (0-99); LIPEMIA HEMOLYSIS FLAG 80 (0-99); MEAN CELL HEMOGLOBIN 29.2 pg (27.9-34.1); MEAN CELL HEMOGLOBIN CONCENTR. 33.7 g/dL (32.4-36.7); MEAN CELL VOLUME 86.7 fL (81.5-99.8); MEAN PLATELET VOLUME 9.2 fL (8.7-11.7); PLATELET CLUMPS FLAG 0 (0-99); PLATELET COUNT 145 10^3/uL (150-400); RED BLOOD CELL COUNT 2.26 10^6/uL (4.40-6.38); RED CELL DISTRIBUTION WIDTH 15.5 % (11.5-15.2)
[2016-11-27 05:16] LABS: HEMOGLOBIN 6.6 g/dL (13.7-17.5)
[2016-11-27 05:56] LABS: PLATELET ESTIMATE DECREASED (ADEQ); POLYCHROMASIA 1+
[2016-11-27 05:57] LABS: MICROCYTES 1+
[2016-11-27 06:25] LABS: ANION GAP 4 mEq/L (8-16); CALCIUM 7.8 mg/dL (8.5-10.4); CARBON DIOXIDE 19 mEq/l (22-31); CHLORIDE 112 mEq/L (97-110); CREATININE 0.6 mg/dL (0.7-1.3); GLOMERULAR FILTRATION RATE > 60; GLUCOSE 91 mg/dL (70-100); MAGNESIUM 1.9 mg/dL (1.6-2.3); POTASSIUM 4.4 mEq/L (3.5-5.2); SODIUM 135 mEq/L (134-144)
[2016-11-27] MEDS ORDERED: CALCIUM GLUCONATE 50 ML IV ONE (07:32)
[2016-11-27] MEDS: PANTOPRAZOLE SODIUM 40 MG TAB PO SCH (09:03)
--- NOTE | 2016-11-27 09:33 | PDINTPN ---
Front End Manager Progress Note Assessment/Plan: Assessment/plan: 66 M with recently diagnosed pancreatic cancer yet to be treated admitted with UGIB. EGD revealed large duodenal mass just inside pylorus with minimal luminal opening. No specific therapy was indicated and he had stopped bleeding at that point. He was considering therapeutic options when he rebled with simultaneous hematemesis and melena around 1530 on 11/26/16. No aspiration was observed and his VS were stable, but his Hct dropped to 21. * UGIB 2/2 hrq-sc-be-treated pancreatic cancer with extension into duodenum. Now s/p embolization of GDA by IR 11/26. Some residual melena, but no major bleeding since. H/H still low and likely residual from yesterday's event. Will transfuse 2 more units RBC given soft BP. Diet advanced to clears and would continue conservative advancement. Following H/H q6 today. * Hypotension- 2/2 GIB- responded well to volume as expected. No pressors required. * Pancreatic cancer- awaiting discussion with heme/onc friday as outpatient if possible. 11/27/16 09:29 Objective: Vital Signs Temp Pulse Resp BP Pulse Ox 37.0 C 65 19 92/55 L 100 11/27/16 09:00 11/27/16 09:00 11/27/16 09:00 11/27/16 09:00 11/27/16 09:00 Laboratory Results 11/27/16 05:00 11/27/16 05:00 11/26/16 11/27/16 11/28/16 05:59 05:59 05:59 Intake Total 2458 3629 Output Total 950 Balance 1508 3629 PT 16.9 SEC (12.0-15.0) H 11/26/16 15:10 INR 1.37 (0.83-1.16) H 11/26/16 15:10 Physical Exam - Physical Exam General Appearance: WD/WN, alert, no apparent distress EENT: PERRL/EOMI Neck: supple Respiratory: lungs clear, normal breath sounds, No respiratory distress Cardiac/Chest: regular rate, rhythm, No edema Abdomen: non-tender, soft, No distended Skin: normal color, warm/dry Lymphatic: no adenopathy Extremities: No pedal edema Neuro/Psych: alert, normal mood/affect, oriented x 3 ICD10 Worksheet Patient Problems: Problems Problem Status Onset Upper GI bleed Acute
[2016-11-27 11:33] LABS: HEMATOCRIT 28.2 % (40.0-51.0); HEMOGLOBIN 9.7 g/dL (13.7-17.5)
--- NOTE | 2016-11-27 12:14 | SOAPPROG ---
SOAP Progress Note Assessment/Plan: Assessment/Plan: Pancreatic cancer, now infiltrating the duodenal bulb almost completely, with rebleed. Now, appears stopped, for the time being. Dr. Barr's excellent work appreciated. - suspect o.k. to advance diet to regular. Otherwise: - he will meet with Dr. Bonilla Friday, but is leaning towards no chemo - he is interested in hospice, and appears to be leaning towards comfort care I will sign off. Please call if we can be of further help [phone]). Thanks! 11/27/16 12:11 Subjective: cc: UGI bleed No signs of further bleeding presently. No diaphoresis, syncope, light- headedness, rigors, chills. Fatigued. Objective: Vital Signs Temp Pulse Resp BP Pulse Ox 37.0 C 62 21 H 100/53 L 99 11/27/16 09:00 11/27/16 10:00 11/27/16 10:00 11/27/16 10:00 11/27/16 10:00 Laboratory Results 11/27/16 11:30 11/27/16 05:00 11/26/16 11/27/16 11/28/16 05:59 05:59 05:59 Intake Total 2458 3629 Output Total 950 Balance 1508 3629 PT 16.9 SEC (12.0-15.0) H 11/26/16 15:10 INR 1.37 (0.83-1.16) H 11/26/16 15:10 Physical Exam - Physical Exam General Appearance: WD/WN, alert, no apparent distress EENT: PERRL/EOMI, normal ENT inspection, pharynx normal, TMs normal Neck: non-tender, full range of motion, supple, normal inspection Respiratory: chest non-tender, lungs clear, normal breath sounds Cardiac/Chest: normal peripheral pulses, regular rate, rhythm Peripheral Pulses: 2+: carotid (R), carotid (L), femoral (R), femoral (L), dorsalis-pedis (R), dorsalis-pedis (L) Abdomen: normal bowel sounds, non-tender, soft Male Genitalia: deferred Rectal: deferred Back: Normal inspection Skin: normal color, warm/dry Lymphatic: no adenopathy Extremities: normal range of motion, non-tender, normal inspection, normal capillary refill Neuro/Psych: no motor/sensory deficits, alert, normal mood/affect, oriented x 3 ICD10 Worksheet Patient Problems: Problems Problem Status Onset Upper GI bleed Acute
--- NOTE | 2016-11-27 15:13 | PDPCPN ---
Palliative Care Progress Note Assessment/Plan: Referring provider: Dr Mcnamara Reason for consult: Complex medical decision making Symptom control HPI: Elisa Moon (Dick) is a 66 yo with recent dx of pancreatic cancer admitted to the hospital for vomiting BRB. S/p EGD with no active bleeding and given transfusions. Rebleed here in the hospital s/p embolization by IR. Bleeding has been stablized and h/h remains stable. Still deciding on his options but leaning towards no treatment for his cancer. Palliative care consulted for complex medical decision making. Met with Ryan and his friend Renee Scott at the bedside this afternoon. Ryan stated that he is planning on meeting with his oncologist friday to discuss possible treatment options. He states he is leaning towards no treatment as he is worried about being physically dependent and not being able to live his normal independent lifestyle if he is receiving chemo. He values his quality of life with living alone, working at the [employer] and being involved in his adventist. He has family that lives in [place]. He feels undecided about which direction to take but understands his disease is terminal with or without treatment. Provided some information on code status (MOST form) and hospice care. He is hoping to gather more information on friday and make a final decision then. Assessment: Physical: - Pain: abdominal pain - would restart home PO pain medications like vicodin - avoid NSAIDs - Nausea/vomiting: resolved - zofran PRN - constipation - at risk with opiates - continue bowel regimen with senna and colace Emotional/psychological: has a lot of support from friends and his adventist Advanced Care Planning: Is patient decisional?: Yes Code Status: Full- will readdress POA: brother Collin is MDPOA Plan: Home when medically stable. Has friends who are willing to help out as needed. Decision regarding chemo vs comfort only pending. Subjective: I'm feeling better, still a little weak Objective: Social History: Never . Has siblings who live in [place]. Has a lot of support from friends. Member of the [employer] [facility] and [employer]. Works at the [employer] at . Medication list reviewed ROS: General: fatigue ENT: negative Resp: negative GI: abdominal pain : negative MS: negative Skin: rnegative Neuro: negative Psych: negative Functional assessment: PPS: 70% Functional status: independent on ADLs, IADLs Vital Signs Temp Pulse Resp BP Pulse Ox 37.0 C 62 21 H 100/53 L 99 11/27/16 09:00 11/27/16 10:00 11/27/16 10:00 11/27/16 10:00 11/27/16 10:00 Laboratory Results 11/27/16 11:30 11/27/16 05:00 11/26/16 11/27/16 11/28/16 05:59 05:59 05:59 Intake Total 2458 3629 Output Total 950 Balance 1508 3629 PT 16.9 SEC (12.0-15.0) H 11/26/16 15:10 INR 1.37 (0.83-1.16) H 11/26/16 15:10 Physical Exam - Physical Exam General Appearance: alert, no apparent distress Respiratory: No respiratory distress, No accessory muscle use Skin: normal color, warm/dry Extremities: pedal edema (trace) Neuro/Psych: alert, oriented x 3 ICD10 Worksheet Patient Problems: Problems Problem Status Onset Palliative care encounter Acute Upper GI bleed Acute - ICD10 Problem Qualifiers (1) Palliative care encounter
[2016-11-27] MEDS ORDERED: ALTEPLASE 2 MG VIAL IVP PRN (15:18)
[2016-11-27] MEDS ORDERED: IOPAMIDOL (ISOVUE-300) 100 ML BTL ONE ×2 (15:57→16:46)
[2016-11-27] MEDS ORDERED: HEPARIN 10,000 UNIT/10 ML MDV ONE (16:45)
[2016-11-27] MEDS ORDERED: IOPAMIDOL (ISOVUE-370) 150 ML BTL IV ONE (16:46)
[2016-11-27] MEDS ORDERED: NALOXONE HCL 0.4 MG/ML INJ ONE (16:50)
[2016-11-27] MEDS ORDERED: fentaNYL 100 MCG/2 ML INJ ONE (16:50)
[2016-11-27] MEDS: DORZOLAMIDE 2% OPTH DROPS EACHEYE SCH (16:59)
--- NOTE | 2016-11-27 17:11 | HOSPPROG ---
Hospitalist Progress Note Assessment/Plan: 66 yo M newly diagnosed pancreatic cancer pw GI bleed 2/2 newly dx duodenal ulcer # acute gi bleed: found to be due to arterial bleed associated with large duodenal mass, likely pancreatic mass invading duodenal bulb. EGD initially showing no active bleeding, 11/26 re-bled with significant recurrent hematemsis and taken to IR for visceral angiography. Stable overnight but then 11/27 again rebled. Taken back to IR for likely repeat embolization. If unable to control bleeding will need to d/w patient if he is amenable to surgical intervention. This was brought up with him earlier and he is reluctant # acute blood loss anemia: in the setting of above with rapid blood loss from GI bleed as detailed. s/p tx 4 units. Stable thus far, monitoring # locally invasive pancreatic cancer: with e/o fungating duodenal mass as above , px poor, initial tumor felt to be unresectable, now with invasion to duodenum with high risk for recurrent bleeding. He has his care through [facility], he is not likely to pursue chemotherapy and has not been felt to be a surgical candidate. # code status: discussed with patient at length, explained the rationale and meaning of being DNR, at this point he is leaning towards being DNR but wanted more time to consider. This was before his rebleeding event. Discussed with Cassy of palliative care. If IR cannot control bleeding and patient is not amenable to surgery, he will likely not survive this hospitalization. > 45 minutes spent in discussion of goals of care face to face with patient and separately with palliative care # dispo: IP status, remains high risk Reviewed care plan with Dr. Meza and Palliative care team Subjective: patient had recurrent bleeding yesterday, today was doing well this morning then had recurrent bleed this afternoon Objective: Vital Signs Temp Pulse Resp BP Pulse Ox 37.2 C 82 21 H 66/34 L 98 11/27/16 11:00 11/27/16 15:00 11/27/16 15:00 11/27/16 15:00 11/27/16 15:00 Laboratory Results 11/27/16 11:30 11/27/16 05:00 11/26/16 11/27/16 11/28/16 05:59 05:59 05:59 Intake Total 2458 3629 Output Total 950 650 Balance 1508 3629 -650 PT 16.9 SEC (12.0-15.0) H 07/04/17 15:10 INR 1.37 (0.83-1.16) H 11/26/16 15:10 awake alert nad anicteric op clear rrr no mrg cta b soft ttp midepigastrium trace ble edema pale warm dry oriented appropraite ICD10 Worksheet Patient Problems: Problems Problem Status Onset Palliative care encounter Acute Upper GI bleed Acute
[2016-11-27] MEDS ORDERED: NITROGLYCERIN/D5W 50 MG/250 ML BOTTLE IV ONE (18:12)
[2016-11-27] MEDS ORDERED: GLUCAGON,HUMAN RECOMBINANT 1 MG VIAL ONE (18:20)
[2016-11-27] MEDS: OPTH EACHEYE SCH (19:54)
[2016-11-27] MEDS: DORZOLAMIDE 2% EACHEYE SCH (19:54)
[2016-11-27 23:37] LABS: HEMATOCRIT 22.6 % (40.0-51.0)
[2016-11-27 23:54] LABS: POTASSIUM 4.2 mEq/L (3.5-5.2)
[2016-11-28 03:21] LABS: IONIZED CALCIUM 1.17 MMOL/L (1.12-1.30)
[2016-11-28 03:22] LABS: ABSOLUTE IMMATURE GRANULOCYTES 0.11 10^3/uL (0.00-0.10); ADD DIFF? NO; ADD MORPH? NO; ADD SCAN? NO; ATYPICAL LYMPHOCYTE FLAG 0 (0-99); FRAGMENT RBC FLAG 0 (0-99); HEMATOCRIT 23.2 % (40.0-51.0); LEFT SHIFT FLG 0 (0-99); LIPEMIA HEMOLYSIS FLAG 90 (0-99); MEAN CELL HEMOGLOBIN 28.5 pg (27.9-34.1); MEAN CELL HEMOGLOBIN CONCENTR. 34.5 g/dL (32.4-36.7); MEAN CELL VOLUME 82.6 fL (81.5-99.8); MEAN PLATELET VOLUME 9.7 fL (8.7-11.7); PLATELET CLUMPS FLAG 10 (0-99); PLATELET COUNT 117 10^3/uL (150-400); RED BLOOD CELL COUNT 2.81 10^6/uL (4.40-6.38); RED CELL DISTRIBUTION WIDTH 15.6 % (11.5-15.2)
[2016-11-28 03:37] LABS: ANION GAP 4 mEq/L (8-16); CALCIUM 7.5 mg/dL (8.5-10.4); CARBON DIOXIDE 22 mEq/l (22-31); CHLORIDE 108 mEq/L (97-110); CREATININE 0.5 mg/dL (0.7-1.3); GLOMERULAR FILTRATION RATE > 60; GLUCOSE 92 mg/dL (70-100); MAGNESIUM 1.7 mg/dL (1.6-2.3); POTASSIUM 4.1 mEq/L (3.5-5.2); SODIUM 134 mEq/L (134-144)
[2016-11-28] MEDS ORDERED: MAGNESIUM SULF 1 GM/DEXTROSE 100 ML IV ONE (04:19)
[2016-11-28 10:13] LABS: HEMATOCRIT 23.2 % (40.0-51.0)
[2016-11-28] MEDS: DORZOLAMIDE 2% EACHEYE SCH ×2 (12:06→20:20)
[2016-11-28] MEDS: PANTOPRAZOLE SODIUM 40 MG TAB PO SCH (12:06)
[2016-11-28] MEDS: OPTH EACHEYE SCH ×2 (12:06→20:20)
--- NOTE | 2016-11-28 12:18 | PDINTPN ---
Insurance Operations Rep Progress Note Assessment/Plan: Assessment/plan: 66 M with recently diagnosed pancreatic cancer yet to be treated admitted with UGIB. EGD revealed large duodenal mass just inside pylorus with minimal luminal opening. No specific therapy was indicated and he had stopped bleeding at that point. He was considering therapeutic options when he rebled with simultaneous hematemesis and melena around 1530 on 11/26/16. No aspiration was observed and his VS were stable, but his Hct dropped to 21. * UGIB 2/2 cbz-co-oo-treated pancreatic cancer with extension into duodenum. EGD on 11/25 revealed mass in duodenal bulb but no immediate rx since no active bleed at the time. Then underwent embolization of GDA by IR 11/26 after significant rebleed in ICU. He appeared stable after that, but had a near- syncopal episode the afternoon of 11/27 with additional drop in HCT, hypotension, and altered MS. He had a CT with contrast to better explore the anatomy, which revealed a hepatic artery psuedoaneurysm. Subsequent angiography revealed extravasation followed by stenting which appeared to control bleeding. He remained stable overnight (including h/h), though did report 1-2 BRB BM's. * Hypotension- 2/2 GIB- responded well to volume as expected in both instances. No pressors required. * Pancreatic cancer- had palliative care/hospice eval for informational purposes only and made DNR. Will still need outpatient oncology eval for possible chemo (as palliative therapy, not curative) * Dispo- requires ICU monitoring at least through today 11/27/16 09:29 11/28/16 12:11 Objective: Vital Signs Temp Pulse Resp BP Pulse Ox 37.0 C 61 20 93/52 L 94 11/28/16 07:00 11/28/16 09:00 11/28/16 09:00 11/28/16 09:00 11/28/16 09:00 Laboratory Results 11/28/16 09:00 11/28/16 03:15 11/27/16 11/28/16 11/29/16 05:59 05:59 05:59 Intake Total 3629 2000 650 Output Total 1200 Balance 3629 800 650 PT 16.9 SEC (12.0-15.0) H 11/26/16 15:10 INR 1.37 (0.83-1.16) H 11/26/16 15:10 Physical Exam - Physical Exam General Appearance: WD/WN, alert, no apparent distress EENT: PERRL/EOMI Neck: supple Respiratory: lungs clear, normal breath sounds, No respiratory distress Cardiac/Chest: regular rate, rhythm, No edema Abdomen: soft, other (generalized mild tender to palp), No pulsatile mass, No distended, No guarding Skin: normal color, warm/dry, No jaundice Lymphatic: no adenopathy Extremities: non-tender, No pedal edema Neuro/Psych: alert, normal mood/affect, oriented x 3 ICD10 Worksheet Patient Problems: Problems Problem Status Onset Palliative care encounter Acute Upper GI bleed Acute
[2016-11-28 12:53] LABS: POTASSIUM 4.3 mEq/L (3.5-5.2)
--- NOTE | 2016-11-28 14:02 | HOSPPROG ---
Hospitalist Progress Note Assessment/Plan: DIAGNOSES: -Acute upper GI bleed, arterial - hypotension and near-syncope due to above -Acute Post hemorrhagic anemia -pseudoaneurysm of hepatic artery, status post percutaneous embolization -Status post embolization of gastrodiploic artery -pancreatic cancer, locally advanced, diagnosed on November 04 The patient has passed some maroon stool today. However so far his blood pressure pulse and hemoglobin are stable and he is feeling well sitting up in a chair and has been walking in the hallway. He remains at high risk for further arterial bleeding intra-abdominally and will be watched further in the intensive care unit for this reason. The patient has had extensive discussion with the medical and nursing staff in the unit here as well as with the palliative care team and hospice consultants. At this point his questions are all answered. His intent is to continue to have us treat him here for his bleeding episode aggressively, and then to return to his oncologist at the [facility] to discuss treatment options further. He is undecided in terms of what he wants to do in terms of any tumor directed therapies. PLANS: -continue intensive care unit monitoring of hemodynamics and blood counts -Consider further measures as indicated to stop any other bleeding - I will try and assist him with getting onto a sleep cycle here in the hospital I reviewed in detail today with Dr. Meza Patient also seen by me during multidisciplinary rounds SUBJECTIVE: he has some [id number] abdominal discomfort after his embolization procedures, but does not feel a need for pain medicine at this time. No nausea but no appetite and not eating a whole lot. No shortness of breath or fever symptoms. He did walk today without feeling very lightheaded but does notice severe fatigue and weakness OBJECTIVE Vitals reviewed: stable hemodynamics and respirations without fever Surface Boss, my review: Exam: alert oriented skin warm dry color ok resps not labored lungs clear BSs heart regular abd soft nondistended nontender, bowel sounds present limbs warm, no edema iv site ok laboratory data: Hemoglobin stable so far today Renal function normal INR remains mildly elevated 1.3 Objective: Vital Signs Temp Pulse Resp BP Pulse Ox 37.0 C 62 17 90/53 L 99 11/28/16 07:00 11/28/16 12:00 11/28/16 12:00 11/28/16 12:00 11/28/16 12:00 Laboratory Results 11/28/16 09:00 11/28/16 12:15 11/27/16 11/28/16 11/29/16 06:59 06:59 06:59 Intake Total 3629 2000 1150 Output Total 1200 Balance 3629 800 1150 PT 16.9 SEC (12.0-15.0) H 11/26/16 15:10 INR 1.37 (0.83-1.16) H 11/26/16 15:10 - Time Spent With Patient Time Spent with Patient: greater than 35 minutes Time Spent with Patient: Greater than 35 minutes spent on this patients care, greater than 50% of time spent counseling, educating, and coordinating care regarding the above mentioned plan. ICD10 Worksheet Patient Problems: Problems Problem Status Onset Palliative care encounter Acute Upper GI bleed Acute
[2016-11-28] MEDS ORDERED: TEMAZEPAM 15 MG CAP PO PRN (14:14)
[2016-11-28 16:17] LABS: HEMATOCRIT 22.9 % (40.0-51.0)
[2016-11-28 19:19] LABS: POTASSIUM 4.1 mEq/L (3.5-5.2)
[2016-11-28] MEDS: MELATONIN 3 MG TAB PO SCH (20:15)
[2016-11-28 21:27] LABS: HEMATOCRIT 22.2 % (40.0-51.0); HEMOGLOBIN 7.8 g/dL (13.7-17.5)
[2016-11-29 05:47] LABS: HEMATOCRIT 23.3 % (40.0-51.0); IONIZED CALCIUM 1.17 MMOL/L (1.12-1.30)
[2016-11-29 06:14] LABS: MAGNESIUM 1.9 mg/dL (1.6-2.3); POTASSIUM 4.3 mEq/L (3.5-5.2)
[2016-11-29] MEDS: OPTH EACHEYE SCH ×2 (09:09→20:32)
[2016-11-29] MEDS: DORZOLAMIDE 2% EACHEYE SCH ×2 (09:09→20:32)
[2016-11-29] MEDS: PANTOPRAZOLE SODIUM 40 MG TAB PO SCH (09:09)
--- NOTE | 2016-11-29 09:27 | HOSPPROG ---
Hospitalist Progress Note Assessment/Plan: DIAGNOSES: -Acute upper GI bleed, arterial -hypotension and near-syncope due to above -Acute Post hemorrhagic anemia -pseudoaneurysm of hepatic artery, status post percutaneous embolization -Status post embolization of gastrodiploic artery -pancreatic cancer, locally advanced, diagnosed on November 04 -chronic edema of uncertain mechanism Pt is stable overall from a bleeding standpoint today, and could be transferred to PCU. He continues to have some abdominal pain but is satisfied with pain control. He remains fairly weak and is not strong enough for discharge at this point. I think he stabilized hemodynamically that we can resume diuresis at this time PLANS: -transfer to PCU -continue monitoring hemodynamics and hemoglobin -continue melatonin -will try to get copy of his outside echocardiogram results -will consider diuretics when clearly stable from bleeding standpoint I reviewed in detail today with Dr. Meza Patient also seen by me during multidisciplinary rounds SUBJECTIVE: Still with some abdominal discomfort but is satisfied with pain control. 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, my review: Sinus rhythm Exam: alert oriented skin warm dry color ok resps not labored lungs clear BSs heart regular abd soft nondistended, bowel sounds present, mildly tender limbs warm, no edema iv site ok laboratory data: Hemoglobin stable so far today Objective: Vital Signs Temp Pulse Resp BP Pulse Ox 36.4 C 56 L 11 L 92/55 L 98 11/28/16 21:20 11/29/16 06:20 11/29/16 06:20 11/29/16 06:20 11/29/16 06:20 Laboratory Results 11/29/16 05:40 11/29/16 05:40 11/28/16 11/29/16 11/30/16 06:59 06:59 06:59 Intake Total 1999 2400 Output Total 1200 500 Balance 800 1900 PT 16.9 SEC (12.0-15.0) H 11/26/16 15:10 INR 1.37 (0.83-1.16) H 11/26/16 15:10 ICD10 Worksheet Patient Problems: Problems Problem Status Onset Palliative care encounter Acute Upper GI bleed Acute
[2016-11-29 12:04] LABS: HEMATOCRIT 22.5 % (40.0-51.0); HEMOGLOBIN 7.7 g/dL (13.7-17.5)
--- NOTE | 2016-11-29 14:40 | PDINTPN ---
Librarian Assistant Progress Note Assessment/Plan: Assessment/plan: 66 M with recently diagnosed pancreatic cancer yet to be treated admitted with UGIB. EGD revealed large duodenal mass just inside pylorus with minimal luminal opening. No specific therapy was indicated and he had stopped bleeding at that point. He was considering therapeutic options when he rebled with simultaneous hematemesis and melena around 1530 on 11/26/16. No aspiration was observed and his VS were stable, but his Hct dropped to 21. * UGIB 2/2 [id number]-treated pancreatic cancer with extension into duodenum. EGD on 11/25 revealed mass in duodenal bulb but no immediate rx since no active bleed at the time. Then underwent embolization of GDA by IR 11/26 after significant rebleed in ICU. He appeared stable after that, but had a near- syncopal episode the afternoon of 11/27 with additional drop in HCT, hypotension, and altered MS. He had a CT with contrast to better explore the anatomy, which revealed a hepatic artery psuedoaneurysm. Subsequent angiography revealed extravasation followed by stenting which appeared to control bleeding. Had 1-2 BRB BM post stenting, but none since. Mild back pain today. Ambulating * Hypotension- 2/2 GIB- responded well to volume as expected in both instances. No pressors required. * Pancreatic cancer- had palliative care/hospice eval for informational purposes only and made DNR. Will still need outpatient oncology eval for possible chemo (as palliative therapy, not curative) * Edema- has acute on chronic JOSUE, likely exacerbated by blood products and IVF. No diuresis needed at this time and expect will return to baseline on its own. * Dispo- can probably go to PCU status Objective: Vital Signs Temp Pulse Resp BP Pulse Ox 36.6 C 73 14 101/57 L 95 11/29/16 08:00 11/29/16 12:00 11/29/16 12:00 11/29/16 12:00 11/29/16 12:00 Laboratory Results 11/29/16 11:15 11/29/16 05:40 11/28/16 11/29/16 11/30/16 05:59 05:59 05:59 Intake Total 2000 2400 Output Total 1200 500 Balance 800 1900 PT 16.9 SEC (12.0-15.0) H 11/26/16 15:10 INR 1.37 (0.83-1.16) H 11/26/16 15:10 Physical Exam - Physical Exam General Appearance: WD/WN, alert, no apparent distress EENT: PERRL/EOMI Neck: supple Respiratory: lungs clear, normal breath sounds, No respiratory distress Cardiac/Chest: regular rate, rhythm, edema Abdomen: normal bowel sounds, non-tender, soft, No distended Skin: normal color, warm/dry Extremities: pedal edema Neuro/Psych: alert, normal mood/affect, oriented x 3 ICD10 Worksheet Patient Problems: Problems Problem Status Onset Palliative care encounter Acute Upper GI bleed Acute
[2016-11-29 17:30] LABS: HEMATOCRIT 23.7 % (40.0-51.0)
[2016-11-29] MEDS: MELATONIN 3 MG TAB PO SCH (20:33)
[2016-11-30 05:59] LABS: HEMATOCRIT 21.4 % (40.0-51.0); HEMOGLOBIN 7.2 g/dL (13.7-17.5)
--- NOTE | 2016-11-30 08:59 | SOAPPROG ---
SRIRAM Progress Note Assessment/Plan: Assessment/Plan: Biopsies from his duodenal mass return without cancer. However, suspect this is sampling error only, as with it's large size, circumferential nature, hardness, etc., without doubt malignant, and almost certainly due to infiltration of his pancreatic cancer. No repeat biopsies needed, at this juncture. Please call if we can be of further help [phone]. 11/30/16 08:56 Objective: Vital Signs Temp Pulse Resp BP Pulse Ox 36.7 C 68 21 H 99/54 L 90 L 11/30/16 07:22 11/30/16 07:22 11/30/16 07:22 11/30/16 07:22 11/30/16 07:22 Laboratory Results 11/30/16 05:35 11/29/16 05:40 11/29/16 11/30/16 12/01/16 05:59 05:59 05:59 Intake Total 2400 300 Output Total 500 Balance 1900 300 PT 16.9 SEC (12.0-15.0) H 11/26/16 15:10 INR 1.37 (0.83-1.16) H 11/26/16 15:10 ICD10 Worksheet Patient Problems: Problems Problem Status Onset Palliative care encounter Acute Upper GI bleed Acute
[2016-11-30] MEDS: oxyCODONE IR 5 MG TAB PO PRN ×4 (09:52→21:57)
[2016-11-30] MEDS: PANTOPRAZOLE SODIUM 40 MG TAB PO SCH (09:52)
[2016-11-30] MEDS: OPTH EACHEYE SCH ×2 (13:18→21:03)
[2016-11-30] MEDS: DORZOLAMIDE 2% EACHEYE SCH ×2 (13:18→21:03)
[2016-11-30] MEDS ORDERED: FUROSEMIDE 40 MG/4 ML VIAL IVP ONE (15:39)
--- NOTE | 2016-11-30 15:41 | HOSPPROG ---
Hospitalist Progress Note Assessment/Plan: DIAGNOSES: -Acute upper GI bleed, arterial -hypotension and near-syncope due to above -Acute Post hemorrhagic anemia -pseudoaneurysm of hepatic artery, status post percutaneous embolization -Status post embolization of gastrodiploic artery -pancreatic cancer, locally advanced, diagnosed on November 04 -chronic edema of uncertain mechanism, probably there is some nutritional component there may be portal hypertension or potentially pulmonary hypertension Pt is stable overall from a bleeding standpoint today, and could be transferred to PCU. He continues to have some abdominal pain but is satisfied with pain control. He remains fairly weak and is not strong enough for discharge at this point. I think he stabilized hemodynamically that we can resume diuresis at this time PLANS: -will give IV iron -diuresis and harpal stockings -continue melatonin -will try to get copy of his outside echocardiogram results SUBJECTIVE: He has not noticed any further bleeding. 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: Sinus rhythm Exam: alert oriented skin warm dry color ok resps not labored lungs clear BSs heart regular abd soft nondistended, bowel sounds present, mildly tender limbs warm, still with quite a bit of edema of legs greater than arms but really anasarca overall iv site ok laboratory data: Hemoglobin stable so far today Objective: Vital Signs Temp Pulse Resp BP Pulse Ox 36.6 C 69 22 H 117/55 L 97 11/30/16 12:00 11/30/16 12:00 11/30/16 12:00 11/30/16 12:00 11/30/16 12:00 Laboratory Results 11/30/16 05:35 11/29/16 05:40 11/29/16 11/30/16 12/01/16 06:59 06:59 06:59 Intake Total 2400 300 Output Total 500 Balance 1900 300 PT 16.9 SEC (12.0-15.0) H 11/26/16 15:10 INR 1.37 (0.83-1.16) H 11/26/16 15:10 ICD10 Worksheet Patient Problems: Problems Problem Status Onset Palliative care encounter Acute Upper GI bleed Acute
[2016-11-30] MEDS: SODIUM FERRIC GLUCONAT/SUCROSE 125 MG in NS 100 ML IV SCH (18:36)
[2016-11-30] MEDS: MELATONIN 3 MG TAB PO SCH (21:03)
[2016-12-01] MEDS: oxyCODONE IR 5 MG TAB PO PRN ×5 (02:54→20:32)
[2016-12-01] MEDS: DORZOLAMIDE 2% EACHEYE SCH ×2 (08:40→20:28)
[2016-12-01] MEDS: SODIUM FERRIC GLUCONAT/SUCROSE 125 MG in NS 100 ML IV SCH (08:40)
[2016-12-01] MEDS: OPTH EACHEYE SCH ×2 (08:40→20:28)
[2016-12-01] MEDS: PANTOPRAZOLE SODIUM 40 MG TAB PO SCH (08:41)
[2016-12-01 15:28] LABS: % IMMATURE GRANULYOCYTES 0.8 % (0.0-1.1); ABSOLUTE IMMATURE GRANULOCYTES 0.08 10^3/uL (0.00-0.10); ADD DIFF? NO; ADD MORPH? NO; ADD SCAN? NO; ATYPICAL LYMPHOCYTE FLAG 0 (0-99); FRAGMENT RBC FLAG 0 (0-99); HEMATOCRIT 22.1 % (40.0-51.0); HEMOGLOBIN 7.4 g/dL (13.7-17.5); LEFT SHIFT FLG 10 (0-99); LIPEMIA HEMOLYSIS FLAG 80 (0-99); MEAN CELL HEMOGLOBIN 29.6 pg (27.9-34.1); MEAN CELL HEMOGLOBIN CONCENTR. 33.5 g/dL (32.4-36.7); MEAN CELL VOLUME 88.4 fL (81.5-99.8); MEAN PLATELET VOLUME 9.5 fL (8.7-11.7); PLATELET CLUMPS FLAG 10 (0-99); PLATELET COUNT 257 10^3/uL (150-400); RED CELL DISTRIBUTION WIDTH 17.9 % (11.5-15.2)
[2016-12-01] MEDS ORDERED: MAGNESIUM HYDROXIDE 30 ML UDCUP PO PRN (17:25)
[2016-12-01] MEDS ORDERED: BISACODYL 10 MG SUPP PR PRN (17:25)
[2016-12-01] MEDS ORDERED: LACTULOSE 20 GM/30 ML UDCUP PO PRN (17:25)
[2016-12-01] MEDS: POLYETHYLENE GLYCOL 3350 17 GM PKT PO PRN (18:17)
[2016-12-01] MEDS: MELATONIN 3 MG TAB PO SCH (20:27)
[2016-12-01] MEDS: SENNOSIDES/DOCUSATE SODIUM TAB PO SCH (20:27)
[2016-12-02 05:51] LABS: ABSOLUTE IMMATURE GRANULOCYTES 0.08 10^3/uL (0.00-0.10); ADD DIFF? NO; ADD MORPH? YES; ADD SCAN? NO; ATYPICAL LYMPHOCYTE FLAG 0 (0-99); FRAGMENT RBC FLAG 0 (0-99); HEMATOCRIT 20.4 % (40.0-51.0); LEFT SHIFT FLG 10 (0-99); LIPEMIA HEMOLYSIS FLAG 80 (0-99); MEAN CELL HEMOGLOBIN 29.4 pg (27.9-34.1); MEAN CELL HEMOGLOBIN CONCENTR. 33.3 g/dL (32.4-36.7); MEAN CELL VOLUME 88.3 fL (81.5-99.8); MEAN PLATELET VOLUME 9.5 fL (8.7-11.7); PLATELET CLUMPS FLAG 0 (0-99); PLATELET COUNT 225 10^3/uL (150-400); RED BLOOD CELL COUNT 2.31 10^6/uL (4.40-6.38); RED CELL DISTRIBUTION WIDTH 17.8 % (11.5-15.2)
[2016-12-02 05:56] LABS: HEMOGLOBIN 6.8 g/dL (13.7-17.5)
[2016-12-02 06:20] LABS: HYPOCHROMIA 1+; PLATELET ESTIMATE ADEQUATE (ADEQ); POLYCHROMASIA 2+
[2016-12-02] MEDS: PANTOPRAZOLE SODIUM 40 MG TAB PO SCH (08:02)
[2016-12-02] MEDS: SENNOSIDES/DOCUSATE SODIUM TAB PO SCH ×2 (08:02→21:48)
[2016-12-02] MEDS: OPTH EACHEYE SCH ×2 (08:04→22:52)
[2016-12-02] MEDS: DORZOLAMIDE 2% EACHEYE SCH ×2 (08:04→22:52)
[2016-12-02] MEDS: oxyCODONE IR 5 MG TAB PO PRN ×4 (08:22→21:19)
[2016-12-02] MEDS: SODIUM FERRIC GLUCONAT/SUCROSE 125 MG in NS 100 ML IV SCH (11:19)
[2016-12-02] MEDS ORDERED: FUROSEMIDE 40 MG TAB PO SCH (13:30)
[2016-12-02] MEDS: FUROSEMIDE 40 MG/4 ML VIAL IVP SCH ×2 (14:09→15:53)
[2016-12-02] MEDS: SPIRONOLACTONE 25 MG TAB PO SCH (14:10)
--- NOTE | 2016-12-02 17:31 | HOSPPROG ---
Hospitalist Progress Note Assessment/Plan: * Upper GIB - pancreatic cancer eroding into stomach -arterial bleed s/p IR embolization * Hepatic artery pseudoaneurysm s/p stent * Gastroduodenal artery s/p coil embolization * Hypovolemic shock * ABL anemia - transfuse 1 unit today -no clinical signs of ongoing bleeding * Volume overload -restart diuretics - IV lasix Subjective: No BM. c/o edema - wants lasix, can't walk Objective: Vital Signs Temp Pulse Resp BP Pulse Ox 36.6 C 80 20 115/65 91 L 12/02/16 16:00 12/02/16 16:00 12/02/16 16:00 12/02/16 16:00 12/02/16 16:00 Laboratory Results 12/02/16 05:20 11/29/16 05:40 12/01/16 12/02/16 12/03/16 05:59 05:59 05:59 Intake Total 300 1480 Output Total 150 2100 Balance 300 1330 -2100 PT 16.9 SEC (12.0-15.0) H 11/26/16 15:10 INR 1.37 (0.83-1.16) H 11/26/16 15:10 - Physical Exam Constitutional: no apparent distress, appears nourished, not in pain Cardiovascular: regular rate and rhythym, no murmur, rub, or gallop Respiratory: no respiratory distress, no rales or rhonchi, clear to auscultation Gastrointestinal: normoactive bowel sounds, soft, non-tender abdomen, no palpable masses Skin: no rashes or abrasions, no fluctuance, no induration Neurologic: AAOx3, sensation intact bilaterally Psychiatric: interacting appropriately, not anxious, not encephalopathic, thought process linear ICD10 Worksheet Patient Problems: Problems Problem Status Onset Palliative care encounter Acute Upper GI bleed Acute
[2016-12-02] MEDS: MELATONIN 3 MG TAB PO SCH (21:49)
[2016-12-03 05:42] LABS: % IMMATURE GRANULYOCYTES 0.9 % (0.0-1.1); ABSOLUTE IMMATURE GRANULOCYTES 0.08 10^3/uL (0.00-0.10); ADD DIFF? NO; ADD MORPH? NO; ADD SCAN? NO; ATYPICAL LYMPHOCYTE FLAG 0 (0-99); FRAGMENT RBC FLAG 0 (0-99); HEMATOCRIT 23.6 % (40.0-51.0); HEMOGLOBIN 8.1 g/dL (13.7-17.5); LEFT SHIFT FLG 10 (0-99); LIPEMIA HEMOLYSIS FLAG 90 (0-99); MEAN CELL HEMOGLOBIN 29.7 pg (27.9-34.1); MEAN CELL HEMOGLOBIN CONCENTR. 34.3 g/dL (32.4-36.7); MEAN CELL VOLUME 86.4 fL (81.5-99.8); MEAN PLATELET VOLUME 9.4 fL (8.7-11.7); PLATELET CLUMPS FLAG 0 (0-99); PLATELET COUNT 257 10^3/uL (150-400); RED BLOOD CELL COUNT 2.73 10^6/uL (4.40-6.38); RED CELL DISTRIBUTION WIDTH 18.1 % (11.5-15.2)
[2016-12-03 06:06] LABS: ANION GAP 6 mEq/L (8-16); CALCIUM 7.7 mg/dL (8.5-10.4); CARBON DIOXIDE 25 mEq/l (22-31); CHLORIDE 102 mEq/L (97-110); CREATININE 0.7 mg/dL (0.7-1.3); GLOMERULAR FILTRATION RATE > 60; GLUCOSE 87 mg/dL (70-100); POTASSIUM 3.3 mEq/L (3.5-5.2); SODIUM 133 mEq/L (134-144)
[2016-12-03] MEDS: oxyCODONE IR 5 MG TAB PO PRN ×5 (08:37→20:39)
[2016-12-03] MEDS: FUROSEMIDE 40 MG/4 ML VIAL IVP SCH ×2 (08:38→15:51)
[2016-12-03] MEDS: SENNOSIDES/DOCUSATE SODIUM TAB PO SCH ×2 (08:38→20:33)
[2016-12-03] MEDS: SPIRONOLACTONE 25 MG TAB PO SCH (08:38)
[2016-12-03] MEDS: PANTOPRAZOLE SODIUM 40 MG TAB PO SCH (08:38)
[2016-12-03] MEDS ORDERED: POTASSIUM CL 20 MEQ/15 ML UDCUP PO ONE (09:12)
[2016-12-03] MEDS: DORZOLAMIDE 2% EACHEYE SCH ×2 (10:19→20:41)
[2016-12-03] MEDS: SODIUM FERRIC GLUCONAT/SUCROSE 125 MG in NS 100 ML IV SCH (10:19)
[2016-12-03] MEDS: OPTH EACHEYE SCH ×2 (10:19→20:41)
[2016-12-03] MEDS: POLYETHYLENE GLYCOL 3350 17 GM PKT PO PRN (15:51)
--- NOTE | 2016-12-03 16:38 | HOSPPROG ---
Hospitalist Progress Note Assessment/Plan: * Upper GIB - pancreatic cancer eroding into stomach -arterial bleed s/p IR embolization * Hepatic artery pseudoaneurysm s/p stent * Gastroduodenal artery s/p coil embolization * Hypovolemic shock * ABL anemia - stable post transfusion -no clinical signs of ongoing bleeding * Volume overload - still 4+ edema with large scrotal edema -continue IV lasix + spironolactone Subjective: c/o significant scrotal edema Objective: Vital Signs Temp Pulse Resp BP Pulse Ox 36.9 C 73 17 106/68 92 12/03/16 15:56 12/03/16 15:56 12/03/16 15:56 12/03/16 15:56 12/03/16 15:56 Laboratory Results 12/03/16 04:15 12/03/16 04:15 12/02/16 12/03/16 12/04/16 05:59 05:59 05:59 Intake Total 1480 1945 1040 Output Total 150 4700 2150 Balance 1330 -2755 -1110 PT 16.9 SEC (12.0-15.0) H 11/26/16 15:10 INR 1.37 (0.83-1.16) H 11/26/16 15:10 - Physical Exam Constitutional: no apparent distress, appears nourished, not in pain Cardiovascular: regular rate and rhythym, no murmur, rub, or gallop, edema (4+ to scrotum, scrotum size of large softball) Respiratory: no respiratory distress, no rales or rhonchi, clear to auscultation Gastrointestinal: normoactive bowel sounds, soft, non-tender abdomen, no palpable masses Skin: no rashes or abrasions, no fluctuance, no induration Neurologic: AAOx3, sensation intact bilaterally Psychiatric: interacting appropriately, not anxious, not encephalopathic, thought process linear ICD10 Worksheet Patient Problems: Problems Problem Status Onset Palliative care encounter Acute Upper GI bleed Acute
[2016-12-03] MEDS: MELATONIN 3 MG TAB PO SCH (20:33)
[2016-12-04 04:28] LABS: ANION GAP 6 mEq/L (8-16); CALCIUM 7.8 mg/dL (8.5-10.4); CARBON DIOXIDE 27 mEq/l (22-31); CHLORIDE 100 mEq/L (97-110); CREATININE 0.7 mg/dL (0.7-1.3); GLOMERULAR FILTRATION RATE > 60; GLUCOSE 96 mg/dL (70-100); POTASSIUM 3.6 mEq/L (3.5-5.2); SODIUM 133 mEq/L (134-144)
[2016-12-04] MEDS: oxyCODONE IR 5 MG TAB PO PRN ×3 (08:38→21:31)
[2016-12-04] MEDS: PANTOPRAZOLE SODIUM 40 MG TAB PO SCH (08:39)
[2016-12-04] MEDS: SENNOSIDES/DOCUSATE SODIUM TAB PO SCH ×2 (08:39→21:32)
[2016-12-04] MEDS: SPIRONOLACTONE 25 MG TAB PO SCH (08:39)
[2016-12-04] MEDS: FUROSEMIDE 40 MG/4 ML VIAL IVP SCH ×2 (08:39→14:55)
[2016-12-04] MEDS: DORZOLAMIDE 2% EACHEYE SCH ×2 (08:45→21:48)
[2016-12-04] MEDS: OPTH EACHEYE SCH ×2 (08:45→21:48)
--- NOTE | 2016-12-04 16:08 | HOSPPROG ---
Hospitalist Progress Note Assessment/Plan: * Upper GIB - pancreatic cancer eroding into stomach -arterial bleed s/p IR embolization * Hepatic artery pseudoaneurysm s/p stent * Gastroduodenal artery s/p coil embolization * Hypovolemic shock * ABL anemia - stable post transfusion -no clinical signs of ongoing bleeding * Volume overload - still 4+ edema with large scrotal edema -continue IV lasix + spironolactone -1 more day IV inpatient diuresis Subjective: Still very swollen, scrotal swelling a little better. NO BM Objective: Vital Signs Temp Pulse Resp BP Pulse Ox 36.4 C 77 20 99/60 L 92 12/04/16 11:39 12/04/16 11:39 12/04/16 11:39 12/04/16 11:39 12/04/16 08:00 Laboratory Results 12/03/16 04:15 12/04/16 03:30 12/03/16 12/04/16 12/05/16 05:59 05:59 05:59 Intake Total 1945 1660 860 Output Total 4700 4225 1950 Balance -2755 -2565 -1090 PT 16.9 SEC (12.0-15.0) H 11/26/16 15:10 INR 1.37 (0.83-1.16) H 11/26/16 15:10 - Physical Exam Constitutional: no apparent distress, appears nourished, not in pain Cardiovascular: regular rate and rhythym, no murmur, rub, or gallop, edema (4+ up to scrotum) Respiratory: no respiratory distress, no rales or rhonchi, clear to auscultation Gastrointestinal: normoactive bowel sounds, soft, non-tender abdomen, no palpable masses Skin: no rashes or abrasions, no fluctuance, no induration Neurologic: AAOx3, sensation intact bilaterally Psychiatric: interacting appropriately, not anxious, not encephalopathic, thought process linear ICD10 Worksheet Patient Problems: Problems Problem Status Onset Palliative care encounter Acute Upper GI bleed Acute
[2016-12-04] MEDS: MELATONIN 3 MG TAB PO SCH (21:31)
[2016-12-05 06:04] LABS: % IMMATURE GRANULYOCYTES 0.8 % (0.0-1.1); ABSOLUTE IMMATURE GRANULOCYTES 0.06 10^3/uL (0.00-0.10); ADD DIFF? NO; ADD MORPH? NO; ADD SCAN? NO; ATYPICAL LYMPHOCYTE FLAG 0 (0-99); FRAGMENT RBC FLAG 0 (0-99); HEMATOCRIT 25.2 % (40.0-51.0); HEMOGLOBIN 8.3 g/dL (13.7-17.5); LEFT SHIFT FLG 0 (0-99); LIPEMIA HEMOLYSIS FLAG 80 (0-99); MEAN CELL HEMOGLOBIN CONCENTR. 32.9 g/dL (32.4-36.7); MEAN CELL VOLUME 88.1 fL (81.5-99.8); MEAN PLATELET VOLUME 8.9 fL (8.7-11.7); PLATELET CLUMPS FLAG 0 (0-99); PLATELET COUNT 288 10^3/uL (150-400); RED BLOOD CELL COUNT 2.86 10^6/uL (4.40-6.38); RED CELL DISTRIBUTION WIDTH 17.2 % (11.5-15.2)
[2016-12-05 06:11] LABS: ANION GAP 5 mEq/L (8-16); CALCIUM 7.8 mg/dL (8.5-10.4); CARBON DIOXIDE 29 mEq/l (22-31); CHLORIDE 99 mEq/L (97-110); CREATININE 0.6 mg/dL (0.7-1.3); GLOMERULAR FILTRATION RATE > 60; GLUCOSE 93 mg/dL (70-100); POTASSIUM 3.7 mEq/L (3.5-5.2); SODIUM 133 mEq/L (134-144)
[2016-12-05 07:30] VITALS: RESP 16; TEMP 98; O2SAT 93
[2016-12-05] MEDS: FUROSEMIDE 40 MG/4 ML VIAL IVP SCH ×2 (08:57→15:51)
[2016-12-05] MEDS: SENNOSIDES/DOCUSATE SODIUM TAB PO SCH (08:57)
[2016-12-05] MEDS: PANTOPRAZOLE SODIUM 40 MG TAB PO SCH (08:58)
[2016-12-05] MEDS: SPIRONOLACTONE 25 MG TAB PO SCH (08:58)
[2016-12-05] MEDS: DORZOLAMIDE 2% EACHEYE SCH (08:59)
[2016-12-05] MEDS: OPTH EACHEYE SCH (08:59)
[2016-12-05] MEDS: oxyCODONE IR 5 MG TAB PO PRN (11:54)
[2016-12-05 13:21] VITALS: BP 94/50; PULSE 67
--- NOTE | 2016-12-05 13:50 | PDIAF ---
- Diagnosis Code Status: Do Not Resuscitate - Medication Management Discharge Medications: Medications to Continue on Transfer Cholecalciferol Vit D3 [Vitamin D3 (*)] 1,000 units PO DAILY 11/25/16 [Last Taken Unknown] Dorzolamide 2% [Trusopt 2% (*)] 1 drop EACHEYE BID 11/25/16 [Last Taken 21:00] Furosemide [Lasix 40 MG (*)] 40 mg PO BID 11/25/16 [Last Taken 11/24/16 21:00] Spironolactone [Aldactone 25 MG (*)] 25 mg PO DAILY 11/25/16 [Last Taken ] oxyCODONE/APAP 5/325 [Percocet 5/325 (*)] 1 - 2 tab PO HS PRN 11/25/16 [Last Taken 11/24/16] Pantoprazole Sodium [Protonix 40mg (*)] 40 mg PO DAILY #30 tab 12/05/16 [Last Taken Unknown] Discharge Medications: Refer to the Discharge Home Medication list for PRN reason. - Orders Services needed: Home Care, Registered Nurse, Physical Therapy, Occupational Therapy Home Care Face to Face: I certify that this patient was under my care and that I had the required [id number] encounter meeting the encounter requirements on the discharge day. My findings support the fact that the patient is homebound as defined in CMS Chapter 7 Medicare Benefits Manual 30.1.1, The condition of the patient is such that there exists a normal inability to leave home and consequently, leaving home would require a considerable and taxing effort. Diet Recommendation: no restrictions on diet Weigh Patient: daily - Labs/Radiology BMP Date: 12/09/16 CBC Date: 12/09/16 - Follow Up Care Current Providers and Referrals: Ady Esposito MD, FACG [Medical Doctor] - (gastrointerologist - follow up or call if you have questions) ACE SPANGLER [Primary Care Provider] - As per Instructions
--- NOTE | 2016-12-06 08:09 | GDS ---
[f rep st] DISCHARGE SUMMARY DISCHARGE DIAGNOSES: 1. Upper gastrointestinal bleed due to pancreatic cancer eroding into the stomach. 2. IR embolization of gastroduodenal artery and stenting of hepatic artery pseudoaneurysm. 3. Hypovolemic shock. 4. Acute blood loss anemia. 5. Volume overload. HISTORY: The patient is a 66-year-old male recently diagnosed with pancreatic cancer. He has not y et seen Oncology or initiated chemotherapy. He presented with an upper gastrointestinal bleed and gary jones found his pancreatic cancer was eroding into the stomach. He went to Interventional Radiology and had a coil embolization of a gastroduodenal artery and a stent placement of hepatic artery pseud oaneurysm. With these interventions, his hypovolemic shock has resolved and his H and H have stabil ized. He got multiple units of blood transfused and has at this point, no further clinical signs of ongoing bleeding. He was volume resuscitated which resulted in 4+ edema with scrotal edema. He was diuresed with IV L asix and spironolactone with good result. He can continue to take diuretics upon hospital discharge . DISCHARGE MEDICATIONS: Please see computer record for full detailed list. New medications 1. Oxycodone 5-10 mg every 4 hours as needed. 2. Protonix 40 mg p.o. daily. 3. Lasix 40 mg p.o. b.i.d. 4. Spironolactone 25 mg p.o. daily. Discontinued medications: Ibuprofen. ADDITIONAL DISCHARGE INSTRUCTIONS: 1. Home health PT, OT, VNS with followup laboratory studies ordered. 2. Outpatient Oncology consultation scheduled for near future through [facility]. Greater than 30 minutes' time spent arranging this discharge. Patient was seen and examined by o n day of discharge. /[id number]/MODL
== END 2016-12-05 17:05 | disposition home health service (06) | DRG 356 ==
LOC: EDUNIT# → F2N 14:52 → F2W 11-29 15:28
PROVIDERS: ADMIT Internal Medicine; ATTEND Internal Medicine
PROC: 0DB98ZX Excision of Duodenum, Via Natural or Artificial Opening Endoscopic, Diagnostic (ICD-10-PCS; 2016-11-25)
PROC: 30233N1 Transfusion of Nonautologous Red Blood Cells into Peripheral Vein, Percutaneous Approach (ICD-10-PCS; 2016-11-25)
PROC: B44BZZ3 Ultrasonography of Other Intra-Abdominal Arteries, Intravascular (ICD-10-PCS; principal; 2016-11-26)
PROC: 04L33DZ Occlusion of Hepatic Artery with Intraluminal Device, Percutaneous Approach (ICD-10-PCS; principal; 2016-11-26)
PROC: B444ZZ3 Ultrasonography of Superior Mesenteric Artery, Intravascular (ICD-10-PCS; 2016-11-27)
PROC: 04V33DZ Restriction of Hepatic Artery with Intraluminal Device, Percutaneous Approach (ICD-10-PCS; 2016-11-27)
PROC: 02HV33Z Insertion of Infusion Device into Superior Vena Cava, Percutaneous Approach (ICD-10-PCS; 2016-11-27)
DX: C78.4 Secondary malignant neoplasm of small intestine (principal); T82.898A Other specified complication of vascular prosthetic devices, implants and grafts, initial encounter; I72.8 Aneurysm of other specified arteries; R57.1 Hypovolemic shock; D62 Acute posthemorrhagic anemia; C25.0 Malignant neoplasm of head of pancreas; K76.6 Portal hypertension; N50.89 Other specified disorders of the male genital organs; R60.0 Localized edema; E87.70 Fluid overload, unspecified; Z66 Do not resuscitate
CPT/HCPCS: 82947-QW; 96365; 97116-GP; 97161-GP; 97165-GO; 97530-GO; C1751; C1760; C1769; C1874; C1894; J0610; J1610; J1644; J1940; J2250; J2310; J2353; J2916; J3010; J3430; J3475; P9016; P9017; P9021; Q9967